=== PATIENT | female | born 1990 | race Caucasian/White ===

== ENCOUNTER 2017-03-03 11:11 | Emergency (ER) | payer OTHER ==
[2017-03-03 11:52] VITALS: BP 141/73; PULSE 79; RESP 20; TEMP 99.7
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
--- NOTE | 2017-03-03 13:02 | XR ---
EXAMINATION TYPE: XR forearm LT , 2 VIEWS DATE OF EXAM ORDERED: 03/03/2017 HISTORY: Pain. COMPARISON: None. FINDINGS: No fracture, dislocation or other acute osseous lesion is seen. IMPRESSION: NORMAL LEFT RADIUS AND ULNA.
== END 2017-03-03 13:36 | disposition home or self-care (01) ==
LOC: EC 11:11
DX: S50.12XA Contusion of left forearm, initial encounter (principal); V49.9XXA Car occupant (driver) (passenger) injured in unspecified traffic accident, initial encounter; Y92.410 Unspecified street and highway as the place of occurrence of the external cause
CPT/HCPCS: 99283

== ENCOUNTER → 2019-09-12 | Outpatient (CLI) | payer OTHER ==
--- NOTE | 2019-09-12 11:48 | US ---
EXAMINATION TYPE: Ultrasound OB <= 14 week fetus DATE OF EXAM: 09/12/2019 10:13 AM COMPARISON: NONE CLINICAL HISTORY: 28-year-old female Z36 Confirm dates. EXAM PERFORMED: Transabdominal (TA) FINDINGS: EXAM MEASUREMENTS: GESTATIONAL AGE / DATING Physician Established: Not yet established Dates by LMP (06/26/2019): (11 weeks/1 days) EDC: 04/01/2020 Dates by First Scan: No previous this is first scan Dates by Current Scan for: (11 weeks/2 days) EDC: 03/31/2020 MATERNAL ANATOMY Uterus: 14.8 x 6.6 x 7.5cm Right Ovary: 2.0 x 1.5 x 1.6cm Left Ovary: 1.8 x 1.3 x 1.6cm Post CDS / Adnexa: wnl GESTATION / SURVEY CRL: 4.4 (11 weeks/2 days) Yolk Sac (normal less than 6mm): not seen Heart Rate: 178 bpm Rhythm: Normal IUP: Viable IUP Date of LMP: 06/26/19 Beta HcG (if available): Not available at this time IMPRESSION: 1. Single live intrauterine with estimated gestational age of 11 weeks 1 day by LMP. Curren t ultrasound biometry is concordant (11 weeks 2 days). 2. Borderline tachycardia at 178 BPM. Follow-up as clinically indicated. Otherwise, complete f etal survey recommended at 18-20 weeks.
== END | disposition home or self-care (01) ==
LOC: RADUSWWP 09:59
PROVIDERS: ATTEND Obstetrics & Gynecology
DX: Z36.89 Encounter for other specified antenatal screening (principal); Z3A.11 11 weeks gestation of pregnancy
CPT/HCPCS: 76801

== ENCOUNTER 2019-12-26 15:27 | Outpatient (CLI) | payer OTHER ==
[2019-12-26 16:07] VITALS: BP 111/69; PULSE 106; RESP 18; TEMP 96
--- NOTE | 2020-01-05 08:00 | P.MSEPDOC ---
Presenting Problems - Arrival Data Date of Arrival on Unit: 12/26/19 Time of Arrival on Unit: 15:40 Mode of Transport: Wheelchair - Complaint OB-Reason for Admission/Chief Complaint: Decreased Movement, Other Comment: numbness and tingling on rt side after walk. no weakness. better now. Medical History - Information : 2 Para: 1 Term: 0 : 1 Abortions: Spontaneous or Elective: 0 Number of Living Children: 1 - Gestational Age Gestational Age by MAINE (wks/days): 26 Weeks and 1 Days Review of Systems - Review of Systems Constitutional: No problems Breast: No problems ENT: No problems Cardiovascular: No problems Respiratory: No problems Gastrointestinal: No problems Genitourinary: No problems Musculoskeletal: Muscle weakness Neurological: No problems Skin: No problems Vital Signs - Temperature Temperature: 96.0 F Temperature Source: Oral - Pulse Right Radial Pulse Rate: 106 Pulse Assessment Method: Automatic Cuff - Respirations Respiratory Rate: 18 Oxygen Delivery Method: Room Air O2 Sat by Pulse Oximetry: 97 - Blood Pressure Right Arm Blood Pressure: 111/69 Blood Pressure Mean: 83 Blood Pressure Source: Automatic Cuff Medical Screen Scoring (Pre) - Cervical Exam Dilation: Exam Deferred Effacement: Exam Deferred - Uterine Contractions Frequency: N/A Duration: N/A Intensity: N/A - Maternal Vital Signs Maternal Temperature: N/A Maternal Blood Pressure: N/A Signs of Preeclampsia: N/A Maternal Respirations: N/A - Maternal Trauma Maternal Trauma: N/A - Assessment - Baby A Baseline FHR: 145 Heart Rate - NICHD Category: Category I (Normal) = 0 Position: N/A Station: N/A - Total Score - Baby A Total Score - Baby A: 0 - Total Score - Baby B Total Score - Baby B: 0 - Total Score - Baby C Total Score - Baby C: 0 - Level of Risk - Baby A Level of Risk - Baby A: Low (0-5) - Level of Risk - Baby B Level of Risk - Baby B: Low (0-5) - Level of Risk - Baby C Level of Risk - Baby C: Low (0-5) Physician Notification (Pre) - Physician Notified Physician Notified Date: 12/26/19 Physician Notified Time: 16:15 New Order Received: Yes Disposition - Disposition OB Disposition: Triage, Discharge to home, Written follow up instructions reviewed Discharge Date: 12/26/19 Discharge Time: 16:20 I agree with the RN Medical Screening Exam: Yes Risk & Benefit of care provided described in d/c instruction: Yes Diagnosis: WEAKNESS
== END 2019-12-26 16:20 | disposition home or self-care (01) ==
LOC: FBPOP 15:27
PROVIDERS: ATTEND Obstetrics & Gynecology
DX: O99.89 Other specified diseases and conditions complicating pregnancy, childbirth and the puerperium (principal); R53.1 Weakness; Z3A.26 26 weeks gestation of pregnancy
CPT/HCPCS: 99213

== ENCOUNTER 2020-01-02 13:36 | Emergency (ER) | payer OTHER ==
[2020-01-02 13:47] VITALS: BP 117/72; PULSE 130; RESP 20; TEMP 98.4
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
--- NOTE | 2020-01-02 14:32 | XR ---
EXAMINATION TYPE: XR wrist complete LT DATE OF EXAM: 01/02/2020 COMPARISON: NONE HISTORY: 29-year-old female fall, medial wrist swelling TECHNIQUE: 3 views FINDINGS: There is soft tissue swelling at the wrist. On the oblique view, there is a subtle transverse lucency at the level of the distal radial metaphysis. On the lateral view, there is some bony irregularity a long the dorsal distal radial metaphysis in the region of Nandini's tubercle. IMPRESSION: Some soft tissue swelling and slight bony irregularity. Suspect a subtle nondisplaced transverse dist al radial metaphyseal fracture.
== END 2020-01-02 15:03 | disposition home or self-care (01) ==
LOC: EC 13:36
DX: O9A.212 Injury, poisoning and certain other consequences of external causes complicating pregnancy, second trimester (principal); S52.502A Unspecified fracture of the lower end of left radius, initial encounter for closed fracture; Z79.82 Long term (current) use of aspirin; Z3A.27 27 weeks gestation of pregnancy; W18.30XA Fall on same level, unspecified, initial encounter; Y92.89 Other specified places as the place of occurrence of the external cause
CPT/HCPCS: 29125; 99284

== ENCOUNTER 2020-01-02 15:20 | Outpatient (CLI) | payer OTHER ==
[2020-01-02 16:01] VITALS: BP 112/76; PULSE 97; RESP 16; TEMP 96.4
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
== END 2020-01-02 15:58 | disposition home or self-care (01) ==
LOC: FBPOP 15:20
PROVIDERS: ATTEND Obstetrics & Gynecology
DX: O9A.212 Injury, poisoning and certain other consequences of external causes complicating pregnancy, second trimester (principal); Z3A.27 27 weeks gestation of pregnancy
CPT/HCPCS: 99213

== ENCOUNTER 2020-01-05 13:06 | Emergency (ER) | payer OTHER ==
[2020-01-05 13:22] VITALS: TEMP 98.4
--- NOTE | 2020-01-05 13:53 | XR ---
EXAMINATION TYPE: XR ankle complete RT DATE OF EXAM: 01/05/2020 CLINICAL HISTORY: Pain since falling injury 3 days ago. TECHNIQUE: Frontal, lateral and oblique images of the right ankle are obtained. COMPARISON: None. FINDINGS: There is no acute fracture/dislocation evident in the right ankle. The ankle mortise appe ars within normal limits. Mild soft tissue swelling over the medial and lateral malleoli along with m ild to moderate focal soft tissue swelling anteriorly is present. IMPRESSION: There is no acute fracture or dislocation in the right ankle.
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
[2020-01-05 14:16] VITALS: BP 122/74; PULSE 107; RESP 16
== END 2020-01-05 14:17 | disposition home or self-care (01) ==
LOC: EC 13:06
DX: O9A.212 Injury, poisoning and certain other consequences of external causes complicating pregnancy, second trimester (principal); S90.01XA Contusion of right ankle, initial encounter; Z3A.27 27 weeks gestation of pregnancy; Z79.82 Long term (current) use of aspirin; W19.XXXA Unspecified fall, initial encounter
CPT/HCPCS: 99283

== ENCOUNTER 2020-02-14 12:50 | Outpatient (CLI) | payer OTHER ==
[2020-02-14 13:11] VITALS: BP 117/74; PULSE 120; RESP 18; TEMP 98.5
--- NOTE | 2020-02-15 07:22 | P.MSEPDOC ---
Presenting Problems - Arrival Data Date of Arrival on Unit: 02/14/20 Time of Arrival on Unit: 12:47 Mode of Transport: Ambulatory - Complaint OB-Reason for Admission/Chief Complaint: Other Comment: ankle swelling x 2 days Medical History - Information : 2 Para: 1 Term: 0 : 1 Abortions: Spontaneous or Elective: 0 Number of Living Children: 1 - Gestational Age Gestational Age by MAINE (wks/days): 33 Weeks and 2 Days - History Complications: Prior Comment: HX PIH first , currently on ASA, doing BP checks at home Review of Systems - Review of Systems Constitutional: No problems Breast: No problems ENT: No problems Cardiovascular: No problems Respiratory: No problems Gastrointestinal: No problems Genitourinary: No problems Musculoskeletal: No problems Neurological: No problems Skin: No problems Vital Signs - Temperature Temperature: 98.5 F Temperature Source: Oral - Pulse Right Sitting Brachial Pulse Rate: 120 Pulse Assessment Method: Auscultation - Respirations Respiratory Rate: 18 Oxygen Delivery Method: Room Air O2 Sat by Pulse Oximetry: 98 - Blood Pressure Right Arm Sitting Blood Pressure: 117/74 Blood Pressure Mean: 88 Blood Pressure Source: Automatic Cuff Medical Screen Scoring (Pre) - Cervical Exam Dilation: Exam Deferred Effacement: Exam Deferred - Uterine Contractions Frequency: N/A Duration: N/A Intensity: N/A - Maternal Vital Signs Maternal Temperature: N/A Maternal Blood Pressure: N/A Signs of Preeclampsia: N/A Maternal Respirations: N/A - Maternal Trauma Maternal Trauma: N/A - Assessment - Baby A Baseline FHR: 135 Heart Rate - NICHD Category: Category I (Normal) = 0 NST: Reactive Position: N/A Station: N/A - Total Score - Baby A Total Score - Baby A: 0 - Total Score - Baby B Total Score - Baby B: 0 - Total Score - Baby C Total Score - Baby C: 0 - Level of Risk - Baby A Level of Risk - Baby A: Low (0-5) - Level of Risk - Baby B Level of Risk - Baby B: Low (0-5) - Level of Risk - Baby C Level of Risk - Baby C: Low (0-5) Physician Notification (Pre) - Physician Notified Physician Notified Date: 02/14/20 Physician Notified Time: 13:05 New Order Received: Yes - Notification Comment Comment: dc home. Follow up with Dr Johnson in the office on Sunday as scheduled. Continue to monitor own BP at home. Return with continued or increased symptoms. Disposition - Disposition OB Disposition: Discharge to home Discharge Date: 02/14/20 Discharge Time: 13:13 I agree with the RN Medical Screening Exam: Yes Risk & Benefit of care provided described in d/c instruction: Yes Diagnosis: GESTATIONAL EDEMA, THIRD TRIMESTER (Patient presented with complaints of lower extremity swelling. She reports history of severe preeclampsia at 35 weeks last . She did tell us that her blood pressures at home however been normal and her blood pressures here excellent. The edema appears to be normal from and not a sign of pathology. No evidence of preeclampsia. Patient will follow up with her physician in several days as scheduled. Return if any concerns, etc.)
== END 2020-02-14 13:13 | disposition home or self-care (01) ==
LOC: FBPOP 12:50
PROVIDERS: ATTEND Obstetrics & Gynecology
DX: O12.03 Gestational edema, third trimester (principal); Z3A.33 33 weeks gestation of pregnancy
CPT/HCPCS: 59025; G0463; 99215

== ENCOUNTER 2020-02-25 21:36 | Outpatient (CLI) | payer OTHER ==
[2020-02-25 22:09] VITALS: BP 129/86; PULSE 110; RESP 18; TEMP 96.6
--- NOTE | 2020-03-08 08:39 | P.MSEPDOC ---
Presenting Problems - Arrival Data Date of Arrival on Unit: 02/25/20 Time of Arrival on Unit: 21:36 Mode of Transport: Ambulatory - Complaint OB-Reason for Admission/Chief Complaint: Decreased Movement Medical History - Information : 2 Para: 1 Term: 0 : 1 Abortions: Spontaneous or Elective: 0 Number of Living Children: 1 - Gestational Age Gestational Age by MAINE (wks/days): 34 Weeks and 6 Days - History Complications: Prior Review of Systems - Review of Systems Constitutional: No problems Breast: No problems ENT: No problems Cardiovascular: No problems Respiratory: No problems Gastrointestinal: No problems Genitourinary: No problems Musculoskeletal: No problems Neurological: No problems Skin: No problems Vital Signs - Temperature Temperature: 96.6 F Temperature Source: Temporal Artery Scan - Pulse Pulse Oximetery Pulse Rate: 110 Pulse Assessment Method: Pulse Oximetry - Respirations Respiratory Rate: 18 Oxygen Delivery Method: Room Air O2 Sat by Pulse Oximetry: 98 - Blood Pressure Right Arm Blood Pressure: 129/86 Blood Pressure Mean: 100 Blood Pressure Source: Automatic Cuff Medical Screen Scoring (Pre) - Cervical Exam Dilation: Exam Deferred Effacement: Exam Deferred Membranes: Intact - Uterine Contractions Frequency: N/A Duration: N/A Intensity: N/A - Maternal Vital Signs Maternal Temperature: N/A Maternal Blood Pressure: N/A Signs of Preeclampsia: N/A Maternal Respirations: N/A - Maternal Trauma Maternal Trauma: N/A - Assessment - Baby A Baseline FHR: 155 Heart Rate - NICHD Category: Category I (Normal) = 0 NST: Reactive Position: N/A Station: N/A - Total Score - Baby A Total Score - Baby A: 0 - Total Score - Baby B Total Score - Baby B: 0 - Total Score - Baby C Total Score - Baby C: 0 - Level of Risk - Baby A Level of Risk - Baby A: Low (0-5) - Level of Risk - Baby B Level of Risk - Baby B: Low (0-5) - Level of Risk - Baby C Level of Risk - Baby C: Low (0-5) Physician Notification (Pre) - Physician Notified Physician Notified Date: 02/25/20 Physician Notified Time: 22:06 New Order Received: Yes - Notification Comment Comment: Dr. Brooke called on cell, report given on maternal and status, pt. complains of no movment for several hours and left sided hand and facial tingling. that lasted 5 mins and has not returned. NST is reactive and pt is feeling good . movement at this time. Vitals are WNL and pt has no other complaints. Orders to. discharge pt home with instructions to monitor movement and keep her appointment with Dr. Johnson tomorrow. Disposition - Disposition OB Disposition: Discharge to home Discharge Date: 02/25/20 Discharge Time: 22:10 I agree with the RN Medical Screening Exam: Yes Risk & Benefit of care provided described in d/c instruction: Yes Diagnosis: DECREASED MOVEMENTS, THIRD TRIMESTER, FETUS 1
== END 2020-02-25 22:10 | disposition home or self-care (01) ==
LOC: FBPOP 21:36
PROVIDERS: ATTEND Obstetrics & Gynecology
DX: O36.8131 Decreased fetal movements, third trimester, fetus 1 (principal); O30.93 Multiple gestation, unspecified, third trimester; Z3A.34 34 weeks gestation of pregnancy
CPT/HCPCS: 59025; G0463; 99213

== ENCOUNTER 2020-03-12 21:35 | Outpatient (CLI) | payer OTHER ==
[2020-03-13 00:14] VITALS: BP 137/83; PULSE 104; RESP 16; TEMP 96.9
--- NOTE | 2020-03-13 07:44 | P.MSEPDOC ---
Presenting Problems - Arrival Data Date of Arrival on Unit: 03/12/20 Time of Arrival on Unit: 21:35 Mode of Transport: Ambulatory - Complaint OB-Reason for Admission/Chief Complaint: Pain, PIH Comment: upper abd pain Medical History - Information : 2 Para: 1 Term: 1 : 0 Abortions: Spontaneous or Elective: 0 Number of Living Children: 1 - Gestational Age Gestational Age by MAINE (wks/days): 37 Weeks and 2 Days - History Complications: Prior , Prior Comment: hx preeclampsia, 35 weeks cs Review of Systems - Review of Systems Constitutional: No problems Breast: No problems ENT: No problems Cardiovascular: No problems Respiratory: No problems Gastrointestinal: No problems Genitourinary: No problems Musculoskeletal: No problems Neurological: No problems Skin: No problems Vital Signs - Temperature Temperature: 96.9 F Temperature Source: Temporal Artery Scan - Pulse Right Pulse Rate: 104 Pulse Assessment Method: Pulse Oximetry - Respirations Respiratory Rate: 16 Oxygen Delivery Method: Room Air - Blood Pressure Right Arm Blood Pressure: 137/83 Blood Pressure Mean: 101 Blood Pressure Source: Automatic Cuff Medical Screen Scoring (Pre) - Cervical Exam Dilation: 0 cm = 0 Membranes: Intact - Uterine Contractions Frequency: N/A Duration: N/A Intensity: N/A - Maternal Vital Signs Maternal Temperature: N/A Maternal Blood Pressure: N/A Signs of Preeclampsia: N/A Maternal Respirations: N/A - Maternal Trauma Maternal Trauma: N/A - Assessment - Baby A Baseline FHR: 135 Heart Rate - NICHD Category: Category I (Normal) = 0 NST: Reactive - Total Score - Baby A Total Score - Baby A: 0 - Total Score - Baby B Total Score - Baby B: 0 - Total Score - Baby C Total Score - Baby C: 0 - Level of Risk - Baby A Level of Risk - Baby A: Low (0-5) - Level of Risk - Baby B Level of Risk - Baby B: Low (0-5) - Level of Risk - Baby C Level of Risk - Baby C: Low (0-5) Physician Notification (Pre) - Physician Notified Physician Notified Date: 03/12/20 Physician Notified Time: 22:20 - Notification Comment Comment: Dr Goodman returned call. reported on pt's c/o sharp upper abd pain, concerns. of PIH. reported on vitals, assessment, no PIH s/sx outside of puffy legs and feet, but. non pitting, SVE closed, no cntrx, reactive fhts, no bleeding or leaking, abd soft and. non tender. dr states per her , the leg puffiness is not new. orders to d/c home. with instructions. return with new or worsening needs Disposition - Disposition OB Disposition: Discharge to home Discharge Date: 03/12/20 Discharge Time: 22:40 I agree with the RN Medical Screening Exam: Yes Risk & Benefit of care provided described in d/c instruction: Yes Diagnosis: FALSE LABOR AT OR AFTER 37 COMPLETED WEEKS OF GESTATION (This patient is a 29-year-old 2 para 1 female 37 weeks gestation who presented to labor and delivery with concerns for possible contractions. Patient had called me earlier in the evening and thought she might be having contractions but was not sure. Patient's past obstetrical history is complicated by preeclampsia which she is being followed for by Dr. Johnson. Blood pressure in the office 2 days ago was normal and blood pressures here serially remain normal. She had 1 blood pressure with a diastolic of 90 however this was not reproducible or persistent. Patient does have some swelling of her lower extremities which is been going on for many weeks. Patient has no other symptomatology other than concern for labor. Prolonged monitoring shows reassuring heart tones and no evidence of labor. At this time it is felt the patient is stable for discharge home follow up with Dr. Johnson next Sunday as scheduled. She was given strict instructions to return if she had any concerns about her blood pressure, signs or symptoms of preeclampsia, and/or signs or symptoms of labor. At this time there is no evidence of maternal/ compromise.)
== END 2020-03-12 22:40 | disposition home or self-care (01) ==
LOC: FBPOP 21:35
PROVIDERS: ATTEND Obstetrics & Gynecology
DX: O47.1 False labor at or after 37 completed weeks of gestation (principal); Z3A.37 37 weeks gestation of pregnancy
CPT/HCPCS: 59025; G0463; 99213

== ENCOUNTER 2020-03-25 06:09 | Inpatient (IN) | payer OTHER ==
[2020-03-24 12:33] VITALS: BMI 41.1
--- NOTE | 2020-03-24 17:56 | P.HPOB ---
History of Present Illness H&P Date: 03/24/20 Chief Complaint: Scheduled repeat section with tubal ligation This is a 29 y.o. female, 2, para 1, with an estimated date of confinement of 04/01/2020, estimated gestational age of 39 weeks, who presents for scheduled repeat section with bilateral partial salpingectomy. She has good movement. She does have swelling in her lower extremities, but no regular headaches. She has a history of preeclampsia with congestive heart failure. She has been doing twice weekly NSTs and has followed with maternal medicine. labs: Hepatitis B surface antigen-neg RPR-NR Rubella-immune Blood type-O+ Antibody screen-neg HIV-NR Hemoglobin-12.7 Toxoplasma-neg Random glucose-66 1 hr. GTT-108 Group B streptococcus-neg OB Hx: . History of primary section for severe preeclampsia at 35 weeks. Hx CHF. [facility] Nurse Hx: Hx genital warts in past. Social Hx: Single/engaged. Review of Systems Constitutional: Denies chills, Denies fever Eyes: denies blurred vision, denies pain Ears, nose, mouth and throat: Denies headache, Denies sore throat Cardiovascular: Denies chest pain, Denies shortness of breath Respiratory: Denies cough Gastrointestinal: Reports abdominal pain (irreg. ctxs) Genitourinary: Reports pelvic pain, Reports Musculoskeletal: Reports low back pain Musculoskeletal: bilateral: ankle swelling Integumentary: Denies pruritus, Denies rash Neurological: Denies numbness, Denies weakness Psychiatric: Denies anxiety, Denies depression Past Medical History Additional Past Medical History / Comment(s): migraines. PRE ECLAMPSIA 2016-LED TO CHF-NO PROBLEMS AT THIS TIME History of Any Multi-Drug Resistant Organisms: None Reported Past Surgical History: Section Additional Past Surgical History / Comment(s): myringotomy as baby Past Anesthesia/Blood Transfusion Reactions: Motion Sickness Past Psychological History: No Psychological Hx Reported Smoking Status: Never smoker Past Alcohol Use History: None Reported Past Drug Use History: None Reported - Past Family History Father Family Medical History: No Reported History Medications and Allergies Home Medications Medication Instructions Recorded Confirmed Type Aspirin [Adult Low Dose Aspirin EC] 81 mg PO DAILY 12/26/19 03/25/20 History Pnv,Calcium 72/Iron/Folic Acid 1 each PO DAILY 12/26/19 03/25/20 History [ Plus Tablet] Allergies Allergy/AdvReac Type Severity Reaction Status Date / Time No Known Allergies Allergy Verified 03/25/20 06:25 Exam Osteopathic Statement: *. No significant issues noted on an osteopathic structural exam other than those noted in the History and Physical/Consult. Intake and Output 03/24/20 03/24/20 03/24/20 06:59 14:59 22:59 Other: Weight 102.058 kg HEENT: within normal limits Heart: regular rate and rhythm Lungs: clear to auscultation bilaterally Abdomen: heart tones: 140's by doppler Cervix: closed/50%/floating Extremities: 2+ pitting edema, neg. Alfie's Results Result Diagrams: 03/25/20 06:30 Assessment and Plan (1) 39 weeks gestation of Current Visit: No Status: Acute Code(s): Z3A.39 - 39 WEEKS GESTATION OF SNOMED Code(s): 51496146 (2) Previous delivery affecting Current Visit: No Status: Acute Code(s): O34.219 - MATERNAL CARE FOR UNSP T YPE SCAR FROM PREVIOUS DEL SNOMED Code(s): 290570458 (3) Family planning Current Visit: No Status: Acute Code(s): Z30.09 - ENCOUNTER FOR OTH GENERAL CNSL AND ADVICE ON CONTRACEPTION SNOMED Code(s): 064646730 Plan: Proceed with repeat section with bilateral tubal ligation. I have discussed the risks, benefits, and alternative therapies for the above- mentioned procedure and for both sedation/anesthesia as well as necessary blood products administration, if indicated, as they pertain to this patient. The patient has indicated her understanding and acceptance of the risks and procedures discussed.
[2020-03-25] MEDS ORDERED: CITRIC ACID-SODIUM CITRATE 15 ML CUP PO ONE (06:24)
[2020-03-25] MEDS ORDERED: LIDOCAINE 1% (10MG/ML) FOR IV START INTRADERMA PRN (06:24)
[2020-03-25] MEDS ORDERED: LACTATED RINGERS 1,000 ML IV ONE (06:24)
[2020-03-25] MEDS: LACTATED RINGERS 1,000 ML IV SCH ×4 (06:39→21:12)
[2020-03-25 06:42] LABS: Basophils % (A) 0 %; Eosinophils % (A) 0 %; HCT 39.7 % (34.0-46.0); Lymphocytes % (A) 20 %; MCHC 32.7 g/dL (31.0-37.0); MCV 94.9 fL (80.0-100.0); Mean Platelet Volume 9.5; Monocytes # (A) 0.6 k/uL (0-1.0); Monocytes % (A) 5 %; Neutrophils # (A) 7.5 k/uL (1.3-7.7); Neutrophils % (A) 73 %; Platelet Count 145 k/uL (150-450); RBC 4.18 m/uL (3.80-5.40); RDW 14.4 % (11.5-15.5); WBC 10.3 k/uL (3.8-10.6)
[2020-03-25] MEDS ORDERED: NALBUPHINE 10 MG/ML (1 ML AMP) ONE (08:00)
[2020-03-25] MEDS ORDERED: OXYTOCIN 10 UNIT/ML 1 ML VIAL ONE (08:00)
[2020-03-25] MEDS ORDERED: ONDANSETRON 4 MG/2 ML VIAL ONE (08:00)
[2020-03-25] MEDS ORDERED: MORPHINE SULFATE (PF) 0.3 MG/0.3 ML SYR ONE (08:00)
[2020-03-25] MEDS ORDERED: KETOROLAC 15 MG/ML 1 ML VIAL ONE (08:00)
--- NOTE | 2020-03-25 08:44 | P.OP ---
Date of Procedure: 03/25/20 Preoperative Diagnosis: 1. Intrauterine at 39-0/7 weeks. 2. History of previous section. 3. Family-planning. Postoperative Diagnosis: Same Procedure(s) Performed: Repeat low transverse section with bilateral partial salpingectomy Anesthesia: spinal (Duramorph) Surgeon: Elisha Johnson Cardiac Surgeon #1: Jonnie Goodman Estimated Blood Loss (ml): 500 Pathology: other (Placenta, portions of right and left fallopian tubes) Condition: stable Disposition: floor Indications for Procedure: This is a 29-year-old female 2 para 1 at 39-0/7 weeks who presents for repeat section with bilateral partial esophagectomy for family planning. I have discussed the risks, benefits, and alternative therapies for the above- mentioned procedure and for both sedation/anesthesia as well as necessary blood products administration, if indicated, as they pertain to this patient. The patient has indicated her understanding and acceptance of the risks and procedures discussed. Operative Findings: A viable female infant is noted in the vertex presentation with scores of 9 at 1 minute and 9 at 5 minutes and weight of 7 lbs. 7 oz. Nuchal cord times one was noted. Normal uterus tubes and ovaries are noted. Description of Procedure: The patient is taken to the operating room where she is placed in the dorsal supine position with leftward tilt after spinal Duramorph anesthesia is given. She is prepped and draped in the normal sterile fashion. Skin was tested and found to be adequately anesthetized. A Pfannenstiel skin incision was made with a scalpel removing the previous laparotomy scar. A second knife was used to carry the incision down to the underlying layer of fascia. The fascia was nicked in the midline with a scalpel and then extended laterally bilaterally with Snyder scissors. The anterior lip of the fascia was grasped with 2 Lakeisha clamps and then dissected off the underlying rectus muscle in the midline with Snyder scissors. The inferior aspect of the fascial incision was grasped with 2 Lakeisha clamps and dissected off the underlying rectus muscle and the midline with Snyder scissors. Next the peritoneum layer was tented up with 2 hemostats and then entered sharply with the scalpel. The incision is extended superiorly and inferiorly with Metzenbaum scissors. Next a DeLee retractor is placed. The vesicouterine peritoneum is entered sharply with Metzenbaum scissors and extended laterally bilaterally with Metzenbaum scissors and then the bladder flap is pushed inferiorly. The lower uterine segment is incised in transverse fashion with the scalpel and then bluntly entered with a hemostat. Clear fluid is noted. The incision was then extended laterally bilaterally with 2 fingers. Next the 's head is delivered through the incision. Nose and mouth are bulb suctioned. Nuchal cord 1 was reduced around the 's head. The remainder of the is easily delivered and placed on mother's abdomen. Cord is clamped and cut. is taken to warmer by nursing staff. Cord blood is obtained secondary to O+ blood type. Uterine fundus is gently massaged and placenta is delivered manually. Uterus is exteriorized and cleared of all clots and debris. Uterine incision is closed with 0 Vicryl suture in a running locked fashion. A second layer of 0 Vicryl suture is used in a running fashion for hemostasis. Once adequate hemostasis as assured, the vesicouterine peritoneum is reapproximated with 2-0 Vicryl suture in a running fashion. The right fallopian tube is grasped in the midportion and then the mesosalpinx is entered with Bovie cautery. Next 0 Vicryl suture is tied 2 times around both the proximal and distal portions of the tube. The same procedure is carried out on the left fallopian tube. The ends of the tubes are cauterized with Bovie cautery. Excellent hemostasis is noted. Posterior cul-de-sac is suctioned of all clots and debris. Uterus is returned to the abdomen. Incision is noted to be hemostatic. Both tubal ends are also visualized and appeared hemostatic. Peritoneal layer is closed with 0 Vicryl suture in a running fashion. Muscle layer is reapproximated with 0 Vicryl suture in interrupted fashion. Fascia layer is then closed with 0 PDS suture with 2 sutures meeting in the midline and the knots buried in either side and in the midline. The subcutaneous tissue was then closed with 2-0 Vicryl suture. Skin layer was then closed with yolette. All sponge and needle counts are correct. The patient is taken to recovery room in stable condition.
[2020-03-25] MEDS ORDERED: ZOLPIDEM 5 MG TAB PO PRN (08:48)
[2020-03-25] MEDS ORDERED: ONDANSETRON 4 MG/2 ML VIAL IVP PRN (08:48)
[2020-03-25] MEDS ORDERED: OXYTOCIN 20 UNITS/1000 ML NS 1,000 ML IV SCH (08:48)
[2020-03-25] MEDS ORDERED: diphenhydrAMINE 50 MG/ML 1 ML VIAL IVP PRN ×2 (08:48)
[2020-03-25] MEDS ORDERED: LANOLIN CREAM 5 GM TUBE TOPICAL PRN (08:48)
[2020-03-25] MEDS ORDERED: HYDROcodone/APAP 7.5-325MG 1 EACH TAB PO PRN (08:48)
[2020-03-25] MEDS ORDERED: HYDROcodone/APAP 5-325MG 1 EACH TAB PO PRN (08:48)
[2020-03-25] MEDS ORDERED: KETOROLAC 15 MG/ML 1 ML VIAL IVP PRN (08:48)
[2020-03-25] MEDS ORDERED: SIMETHICONE 80 MG CHEWABLE PO PRN (08:48)
[2020-03-25] MEDS ORDERED: diphenhydrAMINE 50 MG CAP PO PRN (08:48)
[2020-03-25] MEDS ORDERED: ACETAMINOPHEN TAB 325 MG TAB PO PRN (08:48)
[2020-03-25] MEDS ORDERED: NALOXONE 0.4 MG/ML 1 ML VIAL IV PRN (08:48)
[2020-03-25] MEDS ORDERED: diphenhydrAMINE 25 MG CAP PO PRN (08:48)
[2020-03-25] MEDS: METOCLOPRAMIDE 5 MG/ML 2 ML VIAL IVP PRN ×2 (09:46→20:11)
[2020-03-25] MEDS: PRENATAL VIT-IRON-FOLIC ACID 1 EACH CAP PO SCH (13:20)
[2020-03-25] MEDS: SENNOSIDES-DOCUSATE SODIUM 1 EACH TAB PO SCH (20:12)
[2020-03-26] MEDS: LACTATED RINGERS 1,000 ML IV SCH (05:31)
[2020-03-26 06:57] LABS: Basophils % (A) 0 %; Eosinophils # (A) 0.2 k/uL (0-0.7); Eosinophils % (A) 2 %; HCT 35.2 % (34.0-46.0); HGB 11.6 gm/dL (11.4-16.0); Lymphocytes # (A) 1.4 k/uL (1.0-4.8); Lymphocytes % (A) 13 %; MCH 31.2 pg (25.0-35.0); MCHC 32.9 g/dL (31.0-37.0); MCV 94.7 fL (80.0-100.0); Mean Platelet Volume 9.7; Monocytes # (A) 0.6 k/uL (0-1.0); Monocytes % (A) 5 %; Neutrophils # (A) 8.4 k/uL (1.3-7.7); Neutrophils % (A) 78 %; Platelet Count 116 k/uL (150-450); RBC 3.72 m/uL (3.80-5.40); RDW 15.1 % (11.5-15.5); WBC 10.7 k/uL (3.8-10.6)
--- NOTE | 2020-03-26 07:01 | P.PN ---
Progress Note - Text Date: 03/26/2020 Time: 06:41 The patient is status post section Vital signs stable VAS: 0-1-10 Patient has no complaints of pain. The patient incurred some minimal itching yesterday, this itching is now subsiding. Pain meds to be managed by service.
[2020-03-26] MEDS: IBUPROFEN 600 MG TAB PO PRN ×3 (07:43→21:50)
[2020-03-26] MEDS: SENNOSIDES-DOCUSATE SODIUM 1 EACH TAB PO SCH ×2 (07:43→19:36)
--- NOTE | 2020-03-26 08:25 | P.PNOBGPC ---
Subjective - Subjective Principal diagnosis: Repeat section with tubal ligation postoperative day #1 Interval history: Patient is doing well. She is ambulating. She is passing flatus but no bowel movement yet. She is urinating without difficulty. She is bottle feeding. Lochia is decreasing. Her pain is fairly well controlled so far with ibuprofen. Patient reports: Reports appetite normal, Reports voiding normally, Reports pain well controlled, Reports ambulating normally [place]: doing well, bottle feeding Objective - Vital Signs Latest vital signs: Vital Signs Temp Pulse Resp BP Pulse Ox 03/26/20 04:00 98.6 F 69 16 107/66 100 03/26/20 00:00 98.8 F 100 16 124/77 98 03/25/20 20:00 98.4 F 102 H 18 122/77 95 03/25/20 16:30 98.0 F 90 19 110/70 03/25/20 12:00 97.7 F 112 H 16 130/91 03/25/20 10:45 97.8 F 93 16 106/67 100 03/25/20 10:15 18 03/25/20 09:45 97 16 106/65 98 03/25/20 09:30 86 16 113/63 96 03/25/20 09:15 109 H 16 107/54 98 03/25/20 09:00 96 16 122/53 98 03/25/20 08:45 96.2 F L 104 H 16 128/55 Intake and Output 03/25/20 03/26/20 03/26/20 22:59 06:59 14:59 Intake Total 625 Output Total 1000 1400 Balance -1000 -775 Intake: IV 625 Output: Urine 1000 1400 Straight 700 Uretheral (Nieto) 500 Other: # Emeses 1 - Exam Extremities: Present: edema (Trace) Abdomen: Present: normal appearance, soft. Absent: distention, tenderness Incision: Present: normal, dry, intact. Absent: erythematous Uterus: Present: normal, firm. Absent: tenderness - Labs Labs: Abnormal Lab Results - Last 24 Hours (Table) 03/26/20 Range/Units 06:31 WBC 10.7 H (3.8-10.6) k/uL RBC 3.72 L (3.80-5.40) m/uL Plt Count 116 L (150-450) k/uL Neutrophils # 8.4 H (1.3-7.7) k/uL Assessment and Plan Assessment: Status post repeat section with bilateral partial subjective a postoperative day #1 (1) 39 weeks gestation of Current Visit: No Status: Acute Code(s): Z3A.39 - 39 WEEKS GESTATION OF SNOMED Code(s): 93006920 (2) Previous delivery affecting Current Visit: No Status: Acute Code(s): O34.219 - MATERNAL CARE FOR UNSP TYPE SCAR FROM PREVIOUS DEL SNOMED Code(s): 132966016 (3) Family planning Current Visit: No Status: Acute Code(s): Z30.09 - ENCOUNTER FOR OTH GENERAL CNSL AND ADVICE ON CONTRACEPTION SNOMED Code(s): 423818418 Plan: Continue with postoperative care today. Will switch to oral pain medications today. Patient is encouraged to ambulate. I have discussed opioid use with her. She has signed a start talking opioid form. I have advised her I will send in some [place] to her pharmacy just in case she needs it when she gets home.
[2020-03-26] MEDS: PRENATAL VIT-IRON-FOLIC ACID 1 EACH CAP PO SCH (14:56)
[2020-03-27] MEDS: IBUPROFEN 600 MG TAB PO PRN ×3 (03:37→19:50)
--- NOTE | 2020-03-27 06:59 | P.PNOBGPC ---
Subjective - Subjective Patient reports: Reports appetite normal, Reports voiding normally, Reports pain well controlled, Reports ambulating normally : doing well Objective - Vital Signs Latest vital signs: Vital Signs Temp Pulse Resp BP Pulse Ox 03/27/20 00:00 97.8 F 79 18 126/81 97 03/26/20 16:00 98.4 F 81 16 115/69 98 03/26/20 08:00 98.4 F 99 16 123/81 98 Intake and Output 03/26/20 03/26/20 03/27/20 14:59 22:59 06:59 Output Total 500 Balance -500 Output: Urine 500 Other: # Voids 1 2 2 - Exam Lungs: bilateral: normal Chest: Normal S1, Normal S2 Extremities: Present: normal Abdomen: Present: normal appearance, soft. Absent: distention, tenderness Incision: Present: normal, dry, intact Uterus: Present: normal, firm - Labs Labs: Abnormal Lab Results - Last 24 Hours (Table) 03/26/20 Range/Units 06:31 WBC 10.7 H (3.8-10.6) k/uL RBC 3.72 L (3.80-5.40) m/uL Plt Count 116 L (150-450) k/uL Neutrophils # 8.4 H (1.3-7.7) k/uL Assessment and Plan Assessment: Postoperative day #2. Patient is resting without new complaints. The pressures are normal. Lungs are clear. She's having minimal lower extremity edema. Incision is intact and dry. Pressure this is a normal post operative course. Plan is to Encourage ambulation continue routine postoperative care. Due to patient's history will continue to monitor until tomorrow. (1) delivery delivered Current Visit: No Status: Acute Code(s): O82 - ENCOUNTER FOR DELIVERY WITHOUT INDICATION SNOMED Code(s): 145388298
[2020-03-27] MEDS: SENNOSIDES-DOCUSATE SODIUM 1 EACH TAB PO SCH ×2 (07:56→20:20)
[2020-03-27] MEDS: PRENATAL VIT-IRON-FOLIC ACID 1 EACH CAP PO SCH (12:40)
[2020-03-27 23:09] VITALS: PULSE 73
[2020-03-28] MEDS: IBUPROFEN 600 MG TAB PO PRN (02:09)
--- NOTE | 2020-03-28 07:15 | P.PNOBGPC ---
Subjective - Subjective Patient reports: Reports appetite normal, Reports voiding normally, Reports pain well controlled, Reports ambulating normally : doing well Objective - Vital Signs Latest vital signs: Vital Signs Temp Pulse Resp BP Pulse Ox 03/27/20 23:07 98.3 F 73 18 123/87 98 03/27/20 16:00 97.3 F L 80 16 133/74 98 03/27/20 08:00 98.7 F 80 18 125/78 99 Intake and Output 03/27/20 03/28/20 03/28/20 22:59 06:59 14:59 Other: # Voids 2 2 - Exam Lungs: bilateral: normal Chest: Normal S1, Normal S2 Extremities: Present: normal Abdomen: Present: normal appearance, soft. Absent: distention, tenderness Incision: Present: normal, dry, intact Uterus: Present: normal, firm Assessment and Plan Assessment: Postoperative day #3. She is resting without complaints wishes to go home. Vital signs are stable she is afebrile. Uterus is firm nontender and her incision is intact and dry. My impression this is a normal /postope rative course. Plan is to continue routine care and discharge home later today (1) delivery delivered Current Visit: No Status: Acute Code(s): O82 - ENCOUNTER FOR DELIVERY WITHOUT INDICATION SNOMED Code(s): 885640922
--- NOTE | 2020-03-28 07:20 | P.DS ---
Providers Date of admission: 03/25/20 06:09 Expected date of discharge: 03/28/20 Attending physician: Elisha Johnson Primary care physician: Stated None - Discharge Diagnosis(es) (1) delivery delivered Current Visit: No Status: Acute Hospital Course: Please see dictated H&P for intimate details of this patient's admission. Brief summary is a 29-year-old 2 para 1 female 39 weeks gestation admitted to labor and delivery for elective repeat section and also requesting permanent sterilization. Patient undergoes above-named surgeries. On postoperative 3 patient's feeling well felt be stable for discharge home follow up with Dr. Johnson in 1 week. Procedures: Repeat low transverse section and bilateral partial salpingectomy Patient Condition at Discharge: Good Plan - Discharge Summary Discharge Rx Participant: Yes New Discharge Prescriptions: New Ibuprofen [Motrin] 600 mg PO Q6HR PRN #60 tab PRN Reason: Mild Pain Or Fever >= 100.5 HYDROcodone/APAP 5-325MG [Omar 5-325] 1 each PO Q4HR PRN #28 tab PRN Reason: Moderate Pain Continue Pnv,Calcium 72/Iron/Folic Acid [ Plus Tablet] 1 each PO DAILY Discontinued Aspirin [Adult Low Dose Aspirin EC] 81 mg PO DAILY Discharge Medication List Pnv,Calcium 72/Iron/Folic Acid [ Plus Tablet] 1 each PO DAILY 12/26/19 [History] HYDROcodone/APAP 5-325MG [Omar 5-325] 1 each PO Q4HR PRN #28 tab 03/26/20 [Rx] Ibuprofen [Motrin] 600 mg PO Q6HR PRN #60 tab 03/26/20 [Rx] Follow up Appointment(s)/Referral(s): Elisha Johnson DO [Doctor of Osteopathic Medicine] - 04/05/20 9:00 am (Patient also has a appointment on May 04 at 11:30 AM) Activity/Diet/Wound Care/Special Instructions: Instructions 1. Do not begin any exercise program for 3 weeks. 2. Do not resume sexual relations for 3 weeks or longer if uncomfortable. 3. You may take tub baths or showers at any time. 4. You may use tampons if desired after 3 weeks. 5. Keep the area of episiotomy (stitches) clean and dry. 6. If you are not nursing, wear a good fitting, supportive bra during the day and limit fluid intake for at least 1 week to prevent breast engorgement. 7. Call the office, [phone], within the next week to make appointment for your 6 week checkup if it has not already been made. 8. Report any of the following occurrences to the doctor promptly: a. Heavy, excessive bleeding b. Chills, fever c. Burning or frequency of urination d. Pain or redness and breasts if nursing e. Increasing pain or swelling in episiotomy (stitches). In addition to the above instructions, the following additional should be followed: 1. No heavy lifting or straining (exercising) until after 6 week checkup. 2. Keep abdominal incision clean and dry: You may wear a dressing if more comfortable. 3. Make office appointment for 10 days after going home or as instructed by her doctor. Discharge Disposition: HOME SELF-CARE
[2020-03-28] MEDS: PRENATAL VIT-IRON-FOLIC ACID 1 EACH CAP PO SCH (07:39)
[2020-03-28] MEDS: SENNOSIDES-DOCUSATE SODIUM 1 EACH TAB PO SCH (07:39)
[2020-03-28 07:58] VITALS: BP 114/72; RESP 16; TEMP 98.4
== END 2020-03-28 09:38 | disposition home or self-care (01) | DRG 785 ==
LOC: 4FBP 06:09
PROVIDERS: ADMIT Obstetrics & Gynecology; ATTEND Obstetrics & Gynecology
PROC: 10D00Z1 Extraction of Products of Conception, Low, Open Approach (ICD-10-PCS; principal; 2020-03-25 08:00)
PROC: 0UB70ZZ Excision of Bilateral Fallopian Tubes, Open Approach (ICD-10-PCS; principal; 2020-03-25 08:00)
DX: O34.211 Maternal care for low transverse scar from previous cesarean delivery (principal); O69.81X0 Labor and delivery complicated by cord around neck, without compression, not applicable or unspecified; Z86.79 Personal history of other diseases of the circulatory system; Z37.0 Single live birth; Z3A.39 39 weeks gestation of pregnancy; Z79.82 Long term (current) use of aspirin; Z86.19 Personal history of other infectious and parasitic diseases; Z98.890 Other specified postprocedural states; Z30.2 Encounter for sterilization
CPT/HCPCS: 85025; 86850; 86900; 86901

== ENCOUNTER 2020-03-29 19:00 | Observation (INO) | payer OTHER ==
[2020-03-29 19:37] LABS: Creatinine,Urine Random 208.2 mg/dL; Creatinine,Urine Random 209.7 mg/dL; Protein/Creatinine Ratio,Urine 0.048
[2020-03-29 19:56] LABS: Appearance,Urine Clear (Clear); Bilirubin,Urine Negative (Negative); Blood,Urine Trace (Negative); Color,Urine Yellow; Glucose,Urine (UA) Negative (Negative); Ketones,Urine Negative (Negative); Leukocyte Esterase,Urine Negative (Negative); Mucus,Urine Many /hpf; Nitrite,Urine Negative (Negative); PH, Urine 5.5 (5.0-8.0); Protein,Urine Trace (Negative); RBC,Urine <1 /hpf (0-5); Specific Gravity,Urine 1.029 (1.001-1.035); Squamous Epithelial Cell,Urine <1 /hpf (0-4); Urobilinogen,Urine <2.0 mg/dL (<2.0); WBC,Urine 5 /hpf (0-5)
[2020-03-29 20:25] LABS: Basophils % (A) 0 %; Eosinophils % (A) 1 %; HCT 34.1 % (34.0-46.0); HGB 11.3 gm/dL (11.4-16.0); Lymphocytes # (A) 1.7 k/uL (1.0-4.8); Lymphocytes % (A) 18 %; MCH 31.2 pg (25.0-35.0); MCV 94.6 fL (80.0-100.0); Mean Platelet Volume 9.3; Monocytes # (A) 0.6 k/uL (0-1.0); Monocytes % (A) 6 %; Neutrophils # (A) 6.9 k/uL (1.3-7.7); Neutrophils % (A) 74 %; Platelet Count 153 k/uL (150-450); RBC 3.61 m/uL (3.80-5.40); RDW 14.1 % (11.5-15.5); WBC 9.3 k/uL (3.8-10.6)
[2020-03-29 20:34] LABS: ALT 31 U/L (4-34); AST 82 U/L (14-36); African American GFR (CKD) >90 (>60 ml/min/1.73 sqM); Blood Urea Nitrogen 16 mg/dL (7-17); LDH 737 U/L (313-618); Non-African American GFR(CKD) >90 (>60 ml/min/1.73 sqM); Uric Acid 5.7 mg/dL (3.7-7.4)
[2020-03-29] MEDS ORDERED: IBUPROFEN 600 MG TAB PO PRN (20:40)
[2020-03-29] MEDS ORDERED: CALCIUM GLUCONATE 1 GM/10 ML VIAL IV PRN (20:57)
[2020-03-29] MEDS ORDERED: MAGNESIUM SULFATE-WATER PMX 4 GM in WATER FOR INJECTION 1 100ML.BAG IVPB ONE (20:57)
[2020-03-29] MEDS ORDERED: LACTATED RINGERS 1,000 ML IV SCH (21:45)
[2020-03-29] MEDS: MAGNESIUM SULFATE-WATER PMX 20 GM in WATER FOR INJECTION 1 500ML.BAG IV SCH (21:56)
[2020-03-30] MEDS ORDERED: LACTATED RINGERS 1,000 ML IV SCH (00:07)
[2020-03-30 06:40] LABS: Basophils % (A) 0 %; Eosinophils # (A) 0.1 k/uL (0-0.7); Eosinophils % (A) 1 %; HCT 36.3 % (34.0-46.0); Lymphocytes # (A) 1.3 k/uL (1.0-4.8); Lymphocytes % (A) 15 %; MCH 31.1 pg (25.0-35.0); MCV 94.3 fL (80.0-100.0); Mean Platelet Volume 8.5; Monocytes # (A) 0.5 k/uL (0-1.0); Monocytes % (A) 6 %; Neutrophils # (A) 6.6 k/uL (1.3-7.7); Neutrophils % (A) 77 %; Platelet Count 162 k/uL (150-450); RBC 3.85 m/uL (3.80-5.40); RDW 14.2 % (11.5-15.5); WBC 8.6 k/uL (3.8-10.6)
[2020-03-30 06:48] LABS: African American GFR (CKD) >90 (>60 ml/min/1.73 sqM); Anion Gap 7 mmol/L; Blood Urea Nitrogen 14 mg/dL (7-17); Calcium 7.7 mg/dL (8.4-10.2); Carbon Dioxide 25 mmol/L (22-30); Chloride 107 mmol/L (98-107); Glucose 94 mg/dL (74-99); Non-African American GFR(CKD) >90 (>60 ml/min/1.73 sqM); Potassium 3.8 mmol/L (3.5-5.1); Sodium 139 mmol/L (137-145)
[2020-03-30 07:31] LABS: ALT 33 U/L (4-34); AST 76 U/L (14-36); LDH 758 U/L (313-618)
[2020-03-30] MEDS: MAGNESIUM SULFATE-WATER PMX 20 GM in WATER FOR INJECTION 1 500ML.BAG IV SCH ×2 (07:41→17:28)
[2020-03-30] MEDS: ACETAMINOPHEN TAB 500 MG TAB PO PRN ×2 (08:14→18:14)
--- NOTE | 2020-03-30 08:14 | P.HPOB ---
History of Present Illness H&P Date: 03/30/20 Chief Complaint: Elevated blood pressures This is a 29-year-old female 2 para 2 who delivered via section with bilateral partial salpingectomy on 03/25/2020. She was discharged home on 03/28/2020. She was doing fine once she was discharged but then called me yesterday evening complaining of an elevated blood pressure. She had a blood pressure of approximately 160/105. Also her pulse rate was low at 52. She repeated it after an hour and got similar results. She therefore came into triage for evaluation. She denies any regular headaches. Her pain has been fairly well-controlled with ibuprofen. She denies any epigastric pain, nausea, vomiting, diarrhea. She does complain of swelling in her lower extremities. She denies any chest pain or shortness of breath however she does state she has a weird feeling in her chest that she cannot describe. Review of Systems Constitutional: Denies chills, Denies chronic headaches, Denies fever Eyes: denies blurred vision, denies photophobia Ears, nose, mouth and throat: Denies headache, Denies sore throat Cardiovascular: Denies chest pain, Denies shortness of breath Respiratory: Denies cough Gastrointestinal: Denies abdominal pain, Denies diarrhea, Denies nausea, Denies vomiting Genitourinary: Reports pelvic pain (Mild incisional pain) Musculoskeletal: bilateral: ankle swelling, foot swelling Neurological: Denies numbness, Denies weakness Psychiatric: Denies anxiety, Denies depression Past Medical History Additional Past Medical History / Comment(s): migraines. CHF and preeclampsia after last delivery History of Any Multi-Drug Resistant Organisms: None Reported Past Surgical History: Section (Times 2), Tubal Ligation Additional Past Surgical History / Comment(s): myringotomy as baby Past Anesthesia/Blood Transfusion Reactions: Motion Sickness Past Psychological History: No Psychological Hx Reported Smoking Status: Never smoker Past Alcohol Use History: None Reported Past Drug Use History: None Reported - Past Family History Father Family Medical History: No Reported History Medications and Allergies Home Medications Medication Instructions Recorded Confirmed Type Ibuprofen [Motrin] 600 mg PO Q6HR PRN #60 tab 03/26/20 03/29/20 Rx Allergies Allergy/AdvReac Type Severity Reaction Status Date / Time No Known Allergies Allergy Verified 03/29/20 19:09 Exam Osteopathic Statement: *. No significant issues noted on an osteopathic structural exam other than those noted in the History and Physical/Consult. Vital Signs Temp Pulse Resp BP Pulse Ox 03/30/20 07:00 69 16 146/82 03/30/20 06:00 86 16 126/72 96 03/30/20 05:00 70 16 136/73 95 03/30/20 04:00 95.7 F L 79 16 129/83 97 03/30/20 03:00 64 14 134/81 98 03/30/20 02:00 73 14 135/71 03/30/20 01:00 66 16 137/82 03/29/20 23:55 96.1 F L 77 14 131/67 03/29/20 23:30 59 L 136/76 03/29/20 23:00 56 L 16 134/81 03/29/20 22:30 50 L 16 138/76 98 03/29/20 22:15 43 L 16 128/74 03/29/20 21:56 64 16 135/73 03/29/20 21:47 57 L 16 138/67 03/29/20 21:38 48 L 18 156/83 03/29/20 20:40 43 L 18 136/82 97 Intake and Output 03/29/20 03/30/20 03/30/20 22:59 06:59 14:59 Intake Total 725 562.5 Output Total 1875 400 Balance -1150 162.5 Intake: IV 725 75 Lactated Ringers 1,000 ml 150 25 @ 25 mls/hr IV .Q24H [facility] Rx#:[id number] Lactated Ringers 1,000 ml 75 @ 50 mls/hr IV .Q20H [facility] Rx#:[id number] Magnesium Sulfate-Water 400 50 Pmx 20 gm In Water For Injection 1 500ml.bag @ 2 GM/HR 50 mls/hr IV .Q10H [facility] Rx#:[id number] Magnesium Sulfate-Water 100 Pmx 4 gm In Water For Injection 1 100ml.bag @ 300 mls/hr IVPB ONCE ONE Rx#:[id number] Intake, IV Titration 487.5 Amount Magnesium Sulfate-Water 487.5 Pmx 20 gm In Water For Injection 1 500ml.bag @ 2 GM/HR 50 mls/hr IV .Q10H [facility] Rx#:[id number] Output: Urine 1875 400 Other: Weight 97.069 kg Gen.: Well-developed well-nourished female in no acute distress HEENT: Within normal limits Heart: Regular rate and rhythm Lungs: Clear to auscultation bilaterally Abdomen: Soft, nontender Incision: Clean dry and intact Extremities: 2+ pitting edema Results Result Diagrams: 03/30/20 06:16 03/30/20 06:16 Abnormal Lab Results - Last 24 Hours (Table) 03/29/20 03/29/20 03/29/20 Range/Units 19:15 19:37 19:37 RBC 3.61 L (3.80-5.40) m/uL Hgb 11.3 L (11.4-16.0) gm/dL Calcium (8.4-10.2) mg/dL AST 82 H (14-36) U/L Lactate Dehydrogenase 737 H (313-618) U/L Urine Protein Trace H (Negative) Urine Blood Trace H (Negative) Urine Mucus Many H (None) /hpf 03/30/20 03/30/20 Range/Units 06:00 06:16 RBC (3.80-5.40) m/uL Hgb (11.4-16.0) gm/dL Calcium 7.7 L (8.4-10.2) mg/dL AST 76 H (14-36) U/L Lactate Dehydrogenase 758 H (313-618) U/L Urine Protein (Negative) Urine Blood (Negative) Urine Mucus (None) /hpf Assessment and Plan (1) Bradycardia by electrocardiogram Current Visit: Yes Status: Acute Code(s): R00.1 - BRADYCARDIA, UNSPECIFIED SNOMED Code(s): 878169023 (2) Pre-eclampsia affecting puerperium Current Visit: Yes Status: Acute Code(s): O14.95 - UNSPECIFIED PRE-ECLAMPSIA , COMPLICATING THE PUERPERIUM SNOMED Code(s): 448229028 Plan: Admit for observation and cardiology consultation. Will continue magnesium for 24 hours and then stop. I have advised her that we will keep her overnight tonight until at least tomorrow morning. We will await cardiology consultation and input. All questions answered.
--- NOTE | 2020-03-31 08:13 | P.PN ---
Subjective Progress Note Date: 03/31/20 Principal diagnosis: preeclampsia Patient denies any complaints this morning. She did take Tylenol yesterday for headache. She thinks her swelling has gone down a little bit. She still has not been seen by cardiology yet. Nursing did speak with filler operator on the evening of 03/29/2020 to notify them of the consult. Objective - Vital Signs Vital signs: Vital Signs Temp 97.8 F 03/31/20 04:00 Pulse 63 03/31/20 04:00 Resp 18 03/31/20 04:00 BP 134/86 03/31/20 04:00 Pulse Ox 99 03/30/20 20:00 Intake & Output 03/30/20 03/31/20 03/31/20 18:59 06:59 18:59 Intake Total 1919.667 Output Total 2750 700 Balance -830.333 -700 Intake: IV 825 Lactated Ringers 1,000 ml 275 @ 25 mls/hr IV .Q24H [facility] Rx#:[id number] Magnesium Sulfate-Water 550 Pmx 20 gm In Water For Injection 1 500ml.bag @ 2 GM/HR 50 mls/hr IV .Q10H [facility] Rx#:[id number] Intake, IV Titration 976.667 Amount Magnesium Sulfate-Water 976.667 Pmx 20 gm In Water For Injection 1 500ml.bag @ 2 GM/HR 50 mls/hr IV .Q10H [facility] Rx#:[id number] Oral 118 Output: Urine 2750 700 Uretheral (Nieto) 300 - Constitutional General appearance: Present: no acute distress - Respiratory Respiratory: bilateral: CTA - Cardiovascular Rhythm: regular - Gastrointestinal General gastrointestinal: Present: normal bowel sounds - Musculoskeletal Musculoskeletal Comment(s): 2+ pitting edema in lower extremities bilaterally - Labs CBC & Chem 7: 03/30/20 06:16 03/30/20 06:16 Assessment and Plan (1) Bradycardia by electrocardiogram Current Visit: Yes Status: Acute Code(s): R00.1 - BRADYCARDIA, UNSPECIFIED SNOMED Code(s): 211788210 (2) Pre-eclampsia affecting puerperium Current Visit: Yes Status: Acute Code(s): O14.95 - UNSPECIFIED PRE- ECLAMPSIA, COMPLICATING THE PUERPERIUM SNOMED Code(s): 227537596 Plan: Will await cardiology input. If cleared by cardiology, will discharge today. Blood pressures have improved since magnesium sulfate.
[2020-03-31 08:35] VITALS: RESP 16
--- NOTE | 2020-03-31 10:34 | ECHOF ---
Referral Reason:HX of heart failure MEASUREMENTS -------- HEIGHT: 157.5 cm WEIGHT: 97.1 kg BP: 134/86 RVIDd: 2.5 cm (< 3.3) IVSd: 0.9 cm (0.6 - 1.1) LVIDd: 4.8 cm (3.9 - 5.3) LVPWd: 1.1 cm (0.6 - 1.1) IVSs: 1.3 cm LVIDs: 3.2 cm LVPWs: 1.6 cm LAESV Index (A-L): 27.84 ml/m Ao Diam: 2.9 cm (2.0 - 3.7) AV Cusp: 2.3 cm (1.5 - 2.6) MV EXCURSION: 16.631 mm (> 18.000) MV EF SLOPE: 79 mm/s (70 - 150) EPSS: 0.9 cm MV E Nestor: 0.96 m/s MV DecT: 178 ms MV A Nestor: 1.10 m/s MV E/A Ratio: 0.87 RAP: 5.00 mmHg RVSP: 37.64 mmHg FINDINGS -------- Sinus rhythm. This was a technically difficult study with suboptimal apical views. The left ventricular size is normal. Left ventricular wall thickness is normal. Overall left vent ricular systolic function is normal with, an EF between 55 - 60 %. The right ventricle is normal in size. Normal LA size by volume 22+/-6 ml/m2. The right atrial size is normal. 5.0mg of Lumason was utilized for enhancement of images Interatrial and interventricular septum intact. The aortic valve is trileaflet and appears structurally normal. There is no evidence of aortic regu rgitation. There is no evidence of aortic stenosis. Limh-wq-jeujufjl mitral regurgitation is present. Mild tricuspid regurgitation present. There is mild pulmonary hypertension. The right ventricular systolic pressure, as measured by Doppler, is 37.64mmHg. There is no pulmonic regurgitation present. The aortic root size is normal. IVC Not well visulized. There is no pericardial effusion. CONCLUSIONS -------- 1. The left ventricular size is normal. 2. Left ventricular wall thickness is normal. 3. Overall left ventricular systolic function is normal with, an EF between 55 - 60 %. 4. Izgx-jk-njyrkfoy mitral regurgitation is present. 5. Mild tricuspid regurgitation present. 6. There is mild pulmonary hypertension. 7. The right ventricular systolic pressure, as measured by Doppler, is 37.64mmHg. CARRIER ASSOCIATE: Anne Hartman RDCS
--- NOTE | 2020-03-31 12:26 | P.DS ---
Providers Date of admission: 03/29/20 20:59 Attending physician: Elisha Johnson Consults: 03/30/20 16:24 Consult Physician Urgent Consulting Provider: Pieter Orta Consult Reason/Comments: post bradycardia, history of CHF, preeclampsia Do you want consulting provider notified?: Yes Primary care physician: Stated None - Discharge Diagnosis(es) (1) Bradycardia by electrocardiogram Current Visit: Yes Status: Acute (2) Pre-eclampsia affecting puerperium Current Visit: Yes Status: Acute Hospital Course: This is a 29-year-old female 2 para 2 who is status post section with tubal ligation on 03/25/2020 who presented with elevated blood pressures and bradycardia on the evening of 03/29/2020. She was started on magnesium sulfate seizure prophylaxis due to preeclampsia. Cardiology was consulted due to her history of preeclampsia and CHF with her last . Echocardiogram was performed and was apparently okay. Cardiology does want her to follow-up in the office. Her blood pressures have normalized. She denies any current symptoms. Her swelling has gone down somewhat. Impression is status post repeat section with tubal ligation postoperative day #6, preeclampsia. Plan is to discharge home today. She will follow-up with me next Sunday for a postoperative check. She will continue to check her blood pressures at home at least twice a day. She is advised to call the office if she starts having any significantly elevated blood pressures above 160/100, any new symptoms, or any other concerns. She will follow-up with cardiology also. Procedures: Cardiac echocardiogram Patient Condition at Discharge: Stable Plan - Discharge Summary New Discharge Prescriptions: No Action Ibuprofen [Motrin] 600 mg PO Q6HR PRN #60 tab PRN Reason: Mild Pain Or Fever >= 100.5 Discharge Medication List Ibuprofen [Motrin] 600 mg PO Q6HR PRN #60 tab 03/26/20 [Rx] Follow up Appointment(s)/Referral(s): Elisha Johnson DO [Doctor of Osteopathic Medicine] - 04/05/20 Rudolph Jennings MD [STAFF PHYSICIAN] - 04/20/20 Activity/Diet/Wound Care/Special Instructions: Activity as tolerated. Diet as tolerated. Discharge Disposition: HOME SELF-CARE
--- NOTE | 2020-03-31 12:36 | P.CRDCN ---
History of Present Illness History of present illness: HISTORY OF PRESENTING ILLNESS This is a pleasant 29-year-old female past medical history significant for pre-eclampsia, hypertensive heart failure during her first 5 years ago and non-rheumatic mitral regurgitation. She follows in the office with Dr. Jennings. We have been asked to see in consultation for bradycardia. She is post- s/p section with bilateral partial salpingectomy on 03/25/2020. Since getting home she has noticed increased lower extremity edema and her blood pressure at home was 160/105 with a pulse in the 50s. According to the patient her pulse typically runs between 70 and 80 so this alarmed her. Blood pressures and heart rates since being admitted yesterday are between 120 and 1:30 systolic and heart rate between 60 and 80. She denies symptoms of chest pain, shortness of breath, dizziness or palpitations. Echocardiogram obtained reveals preserved LV systolic function with ejection fraction 50-55% with mild to moderate mitral regurgitation. DIAGNOSTICS EKG reveals it is bradycardia. Laboratory reviewed, CBC unremarkable, sodium 139, potassium 3.8, creatinine 0.66. She takes no daily medications. REVIEW OF SYSTEMS At the time of my exam: CONSTITUTIONAL: Denies fever or chills. CARDIOVASCULAR: Denies chest pain, shortness of breath, orthopnea, PND or palpitations. RESPIRATORY: Denies cough. GASTROINTESTINAL: Denies abdominal pain, diarrhea, constipation, nausea or vomiting. MUSCULOSKELETAL: Denies myalgias. NEUROLOGIC: Denies numbness, tingling or weakness. ENDOCRINE: Denies fatigue, weight change, polydipsia or polyurina. GENITOURINARY: Denies burning, hematuria or urgency with micturation. HEMATOLOGIC: Denies history of anemia or bleeding. PHYSICAL EXAMINATION Blood pressure 140/88 heart rate 67 afebrile and maintaining oxygen saturation on room air. CONSTITUTIONAL: No apparent distress. HEENT: Head is normocephalic. Pupils are equal, round. Sclerae anicteric. Mucous membranes of the mouth are moist. No JVD. No carotid bruit. CHEST EXAMINATION: Lungs are clear to auscultation. No chest wall tenderness is noted on palpation or with deep breathing. HEART EXAMINATION: Regular rate and rhythm. S1, S2 heard. Soft systolic ejection murmur at the apex, no gallops or rub. ABDOMEN: Soft, nontender. Positive bowel sounds. EXTREMITIES: 2+ peripheral pulses, bilateral lower extremity non pitting edema and no calf tenderness. NEUROLOGIC EXAMINATION: Patient is awake, alert and oriented x3. ASSESSMENT Sinus bradycardia, asymptomatic History of pre-eclampsia with first 5 yrs ago Post- section 03/25/2020 Hypertension at home PLAN Stable from a cardiac perspective. Echocardiogram reviewed, normal EF. Blood pressure is stable. Follow up with Dr. Jennings as previously scheduled. Assured the patient that her heart rate in the 50's is normal for someone of her age. Thank you kindly for this consultation. Nurse Practitioner note has been reviewed, I agree with a documented findings and plan of care. Patient was seen and examined. Past Medical History Past Medical History: No Reported History Additional Past Medical History / Comment(s): migraines. CHF and preeclampsia after last delivery History of Any Multi-Drug Resistant Organisms: None Reported Past Surgical History: Section (Times 2), Tubal Ligation Additional Past Surgical History / Comment(s): myringotomy as baby Past Anesthesia/Blood Transfusion Reactions: Motion Sickness Past Psychological History: No Psychological Hx Reported Smoking Status: Never smoker Past Alcohol Use History: None Reported Past Drug Use History: None Reported - Past Family History Father Family Medical History: No Reported History Medications and Allergies Home Medications Medication Instructions Recorded Confirmed Type Ibuprofen [Motrin] 600 mg PO Q6HR PRN #60 tab 03/26/20 03/29/20 Rx Allergies Allergy/AdvReac Type Severity Reaction Status Date / Time No Known Allergies Allergy Verified 03/29/20 19:09 Physical Exam Vitals: Vital Signs Temp Pulse Resp BP Pulse Ox 03/31/20 08:00 98 F 67 16 140/88 96 03/31/20 04:00 97.8 F 63 18 134/86 03/31/20 00:00 98.4 F 59 L 12 138/82 03/30/20 20:00 97.2 F L 61 16 127/73 99 03/30/20 19:00 73 14 140/78 03/30/20 18:00 90 16 132/75 100 03/30/20 17:00 75 16 128/71 03/30/20 16:00 97.9 F 75 16 121/69 98 03/30/20 15:00 72 16 129/75 98 03/30/20 14:00 67 16 130/77 97 03/30/20 13:00 65 16 121/68 94 L 03/30/20 12:00 70 16 120/69 94 L Intake and Output 03/30/20 03/31/20 03/31/20 22:59 06:59 14:59 Intake Total 714.167 Output Total 800 700 300 Balance -85.833 -700 -300 Intake: IV 225 Lactated Ringers 1,000 ml 75 @ 25 mls/hr IV .Q24H [facility] Rx#:[id number] Magnesium Sulfate-Water 150 Pmx 20 gm In Water For Injection 1 500ml.bag @ 2 GM/HR 50 mls/hr IV .Q10H [facility] Rx#:[id number] Intake, IV Titration 489.167 Amount Magnesium Sulfate-Water 489.167 Pmx 20 gm In Water For Injection 1 500ml.bag @ 2 GM/HR 50 mls/hr IV .Q10H [facility] Rx#:[id number] Output: Urine 800 700 300 Uretheral (Nieto) 300 Results 03/30/20 06:16 03/30/20 06:16 Current Medications Generic Name Dose Route Start Last Admin Trade Name Freq PRN Reason Stop Dose Admin Acetaminophen 1,000 mg 03/29/20 22:20 03/30/20 18:14 Acetaminophen Tab 500 Mg Tab PO 1,000 mg Q6HR PRN Administration Fever and/ or Pain Ibuprofen 600 mg 03/29/20 20:40 Ibuprofen 600 Mg Tab PO Q6HR PRN Pain Intake and Output 03/30/20 03/31/20 03/31/20 22:59 06:59 14:59 Intake Total 714.167 Output Total 800 700 300 Balance -85.833 -700 -300 Intake: IV 225 Lactated Ringers 1,000 ml 75 @ 25 mls/hr IV .Q24H [facility] Rx#:[id number] Magnesium Sulfate-Water 150 Pmx 20 gm In Water For Injection 1 500ml.bag @ 2 GM/HR 50 mls/hr IV .Q10H [facility] Rx#:[id number] Intake, IV Titration 489.167 Amount Magnesium Sulfate-Water 489.167 Pmx 20 gm In Water For Injection 1 500ml.bag @ 2 GM/HR 50 mls/hr IV .Q10H [facility] Rx#:[id number] Output: Urine 800 700 300 Uretheral (Nieto) 300 03/30/20 06:16 03/30/20 06:16
[2020-03-31 13:28] VITALS: BP 138/75; PULSE 60; TEMP 97.4
== END 2020-03-31 13:45 | disposition home or self-care (01) ==
LOC: FBPOP 19:00 → 4FBP 20:59
PROVIDERS: ADMIT Obstetrics & Gynecology; ATTEND Obstetrics & Gynecology
DX: O14.95 Unspecified pre-eclampsia, complicating the puerperium (principal); O99.893 Other specified diseases and conditions complicating puerperium; R00.1 Bradycardia, unspecified; O99.355 Diseases of the nervous system complicating the puerperium; G43.909 Migraine, unspecified, not intractable, without status migrainosus; O99.43 Diseases of the circulatory system complicating the puerperium; I34.0 Nonrheumatic mitral (valve) insufficiency; Z98.51 Tubal ligation status; Z86.79 Personal history of other diseases of the circulatory system; Z87.59 Personal history of other complications of pregnancy, childbirth and the puerperium; Z98.890 Other specified postprocedural states; Z87.898 Personal history of other specified conditions
CPT/HCPCS: 93005; 96365; 96366 ×2; 82570; 80048; 84156; 82565; 83615 ×2; 84450 ×2; 84460 ×2; 84520; 84550; 85025 ×2; 81001; G0463; G0378 ×3; C8929; J3475 ×3; Q9950; 93306; 99215

== ENCOUNTER 2021-02-22 10:31 | Emergency (ER) | payer OTHER ==
[2021-02-22] MEDS ORDERED: diphenhydrAMINE 50 MG/ML 1 ML VIAL IVP STA (10:57)
[2021-02-22] MEDS ORDERED: SODIUM CHLORIDE 0.9% 1,000 ML IV STA (10:57)
[2021-02-22] MEDS ORDERED: METOCLOPRAMIDE 5 MG/ML 2 ML VIAL IVP STA (10:57)
[2021-02-22] MEDS ORDERED: KETOROLAC 15 MG/ML 1 ML VIAL IVP STA (10:57)
--- NOTE | 2021-02-22 11:01 | ED ---
General Adult HPI - General Chief complaint: Headache Stated complaint: Vomiting Time Seen by Provider: 02/22/21 10:35 Source: patient, EMS, RN notes reviewed Mode of arrival: EMS Limitations: no limitations - History of Present Illness Initial comments: 30-year-old female with a past medical history of migraines presents to the emergency room for a chief of migraine headache. Patient states this slowly started around 5 AM and then worsened in severity. States it feels like her typical migraine. States it is making her nauseous as it usually does. Patient is also concerned she could have coronavirus because she was sick a couple weeks ago. Patient denies , has tubal ligation.Patient has no other complaints at this time including shortness of breath, chest pain, abdominal pain, nausea or vomiting, or visual changes. - Related Data Home Medications Medication Instructions Recorded Confirmed No Known Home Medications 02/22/21 02/22/21 Allergies Allergy/AdvReac Type Severity Reaction Status Date / Time No Known Allergies Allergy Verified 02/22/21 11:14 Review of Systems ROS Statement: Those systems with pertinent positive or pertinent negative responses have been documented in the HPI. ROS Other: All systems not noted in ROS Statement are negative. Past Medical History Past Medical History: No Reported History Additional Past Medical History / Comment(s): migraines. CHF and preeclampsia after last delivery History of Any Multi-Drug Resistant Organisms: None Reported Past Surgical History: Section, Tubal Ligation Additional Past Surgical History / Comment(s): myringotomy as baby Past Anesthesia/Blood Transfusion Reactions: Motion Sickness Past Psychological History: No Psychological Hx Reported Smoking Status: Never smoker Past Alcohol Use History: None Reported Past Drug Use History: None Reported - Past Family History Father Family Medical History: No Reported History General Exam Limitations: no limitations General appearance: alert, in no apparent distress Head exam: Present: atraumatic Eye exam: Present: normal appearance, PERRL, EOMI ENT exam: Present: normal exam, mucous membranes moist Neck exam: Present: normal inspection, full ROM. Absent: tenderness Respiratory exam: Present: normal lung sounds bilaterally. Absent: respiratory distress, wheezes Cardiovascular Exam: Present: regular rate, normal rhythm, normal heart sounds GI/Abdominal exam: Present: soft, normal bowel sounds. Absent: distended, tenderness Neurological exam: Present: alert Course Vital Signs 02/22/21 10:40 Temperature 98 F Pulse Rate 103 H Respiratory 20 Rate Blood Pressure 114/78 O2 Sat by Pulse 100 Oximetry Medical Decision Making - Medical Decision Making Vitals are stable. Patient was given migraine cocktail and had significant resolution in symptoms. Currently resting comfortably. No red flag symptoms. Patient did test positive for Graf virus. However her symptoms started 2 weeks ago. Therefore she does not qualify for antibody infusion. At this time patient can be discharged home to follow up with primary care. Will return here for any worsening symptoms. - Lab Data Lab Results 02/22/21 Range/Units 11:15 Coronavirus (PCR) Detected A (Not Detectd) Disposition Clinical Impression: COVID-19, Migraine Disposition: HOME SELF-CARE Condition: Good Instructions (If sedation given, give patient instructions): Migraine Headache (ED) Additional Instructions: Please follow-up with your doctor in one to 2 days. Return to the emergency grey m for any worsening symptoms. Is patient prescribed a controlled substance at d/c from ED?: No Referrals: Jens Gallardo DO [Primary Care Provider] - 1-2 days Time of Disposition: 13:44
[2021-02-22 14:03] VITALS: BP 128/78; PULSE 78; RESP 16; TEMP 98.5
== END 2021-02-22 14:02 | disposition home or self-care (01) ==
LOC: EC 10:31
DX: U07.1 COVID-19 (principal); G43.909 Migraine, unspecified, not intractable, without status migrainosus; Z98.51 Tubal ligation status
CPT/HCPCS: 99284; 96374; 96375 ×2; 96361; 87635; J1200; J2765; J1885

== ENCOUNTER → 2021-03-08 | Outpatient (CLI) | payer OTHER ==
--- NOTE | 2021-03-08 14:12 | XR ---
EXAMINATION TYPE: XR cervical spine comp DATE OF EXAM: 03/08/2021 COMPARISON: None HISTORY: 30-year-old female M54.12 TECHNIQUE: 5 views FINDINGS: No predental space widening or prevertebral soft tissue swelling. Alignment is maintained. Disc inter spaces are preserved. No significant bony neuroforaminal narrowing on either side. Normal odontoid vi ew. IMPRESSION: No prevertebral soft tissue swelling or malalignment. No significant bony neuroforaminal narrowing on either side.
== END | disposition home or self-care (01) ==
LOC: RADXRMAIN 10:28
PROVIDERS: ATTEND Nurse Practitioner Family
DX: M54.12 Radiculopathy, cervical region (principal)
CPT/HCPCS: 72050

== ENCOUNTER 2022-04-26 10:11 | Emergency (ER) | payer OTHER ==
[2022-04-26 10:23] VITALS: RESP 18
[2022-04-26] MEDS ORDERED: SODIUM CHLORIDE 0.9% 1,000 ML IV STA (10:43)
[2022-04-26 11:07] LABS: African American GFR (CKD) >90 (>60 ml/min/1.73 sqM); Anion Gap 9 mmol/L; Blood Urea Nitrogen 10 mg/dL (7-17); Carbon Dioxide 24 mmol/L (22-30); Chloride 106 mmol/L (98-107); Glucose 100 mg/dL (74-99); Magnesium 1.8 mg/dL (1.6-2.3); Non-African American GFR(CKD) >90 (>60 ml/min/1.73 sqM); Potassium 4.7 mmol/L (3.5-5.1); Sodium 139 mmol/L (137-145)
--- NOTE | 2022-04-26 11:08 | ED ---
General Adult HPI - General Chief complaint: Neuro Symptoms/Deficit Stated complaint: poss stroke Time Seen by Provider: 04/26/22 10:27 Source: patient Mode of arrival: ambulatory Limitations: no limitations - History of Present Illness Initial comments: Dictation was produced using [employer] dictation software. please excuse any grammatical, word or spelling errors. Chief Complaint: 31-year-old female here in emergency department for concern of stroke History of Present Illness: 31-year-old female she's been having intermittent bouts of what she describes as strokelike symptoms. She states earlier today she had episode that last for 6 minutes. Since that there was some numbness in the left hand and the right lower face. She is scheduled to have a transesophageal echocardiogram on the to evaluate for septal defect causing CVAs versus TIAs. Patient still had a stroke before. Shortly after these episodes she gets a very strange headache that would also loss for a short time. She is asymptomatic at the bedside currently. The ROS documented in this emergency department record has been reviewed and confirmed by me. Those systems with pertinent positive or negative responses have been documented in the HPI. All other systems are other negative and/or noncontributory. PHYSICAL EXAM: General Impression: Alert and oriented x3, not in acute distress HEENT: Normocephalic atraumatic, extra-ocular movements intact, pupils equal and reactive to light bilaterally, mucous membranes moist. Cardiovascular: Heart regular rate and rhythm Chest: Able to complete full sentences, no retractions, no tachypnea Abdomen: abdomen soft, non-tender, non-distended, no organomegaly Musculoskeletal: Pulses present and equal in all extremities, no peripheral edema Motor: no focal deficits noted Neurological: CN II-XII grossly intact, no focal motor or sensory deficits noted, and at 0 Skin: Intact with no visualized rashes Psych: Normal affect and mood ED course:31-year-old female presents emergency department for his of strokelike symptoms. She is a symptomatically at the bedside. Physical examination is benign. Clinical presentation likely secondary to complex migraine given component of headache. Nursing notes and chart review was performed. Imaging studies interpreted by me shows no acute processes. Radiology report shows no acute processes. Patient reevaluated bedside at 1:05 PM found to be stable medical condition. Blood work is unremarkable. Patient these to be symptomatically. This patient highly doubt that patient suffering from cerebrovascular accident or transient ischemic attack. She reports it seems like her symptoms are triggered by stress related situations. Nonetheless she still encouraged to follow up with cardiology for a transesophageal echocardiogram done outpatient basis. My EKG interpretation: Ventricular rate 108, sinus tachycardia,. Interval 150, QRS 72, QTC 377. No NH prolongation, no QTC prolongation, no ST or T-wave changes noted. Overall, this EKG is unremarkable Critical Care: no Critical Care time: n/a - Related Data Home Medications Medication Instructions Recorded Confirmed Aspirin EC [Ecotrin Low Dose] 81 mg PO DAILY 04/26/22 04/26/22 Allergies Allergy/AdvReac Type Severity Reaction Status Date / Time No Known Allergies Allergy Verified 04/26/22 12:03 Review of Systems ROS Statement: Those systems with pertinent positive or pertinent negative responses have been documented in the HPI. ROS Other: All systems not noted in ROS Statement are negative. Past Medical History Past Medical History: No Reported History Additional Past Medical History / Comment(s): migraines. CHF and preeclampsia after last delivery History of Any Multi-Drug Resistant Organisms: None Reported Past Surgical History: Section, Tubal Ligation Additional Past Surgical History / Comment(s): myringotomy as baby Past Anesthesia/Blood Transfusion Reactions: Motion Sickness Past Psychological History: No Psychological Hx Reported Smoking Status: Never smoker Past Alcohol Use History: None Reported Past Drug Use History: None Reported - Past Family History Father Family Medical History: No Reported History General Exam Limitations: no limitations Course Vital Signs 04/26/22 04/26/22 04/26/22 10:17 11:53 12:34 Temperature 98.2 F Pulse Rate 114 H 98 93 Respiratory 18 18 18 Rate Blood Pressure 123/68 112/66 102/63 O2 Sat by Pulse 100 98 99 Oximetry Medical Decision Making - Lab Data Result diagrams: 04/26/22 10:45 04/26/22 10:45 Lab Results 04/26/22 04/26/22 Range/Units 10:45 10:45 WBC 7.0 (3.8-10.6) k/uL RBC 4.45 (3.80-5.40) m/uL Hgb 12.5 (11.4-16.0) gm/dL Hct 38.1 (34.0-46.0) % MCV 85.7 (80.0-100.0) fL MCH 28.0 (25.0-35.0) pg MCHC 32.7 (31.0-37.0) g/dL RDW 15.9 H (11.5-15.5) % Plt Count 239 (150-450) k/uL MPV 9.4 Neutrophils % 68 % Lymphocytes % 23 % Monocytes % 5 % Eosinophils % 2 % Basophils % 1 % Neutrophils # 4.7 (1.3-7.7) k/uL Lymphocytes # 1.6 (1.0-4.8) k/uL Monocytes # 0.4 (0-1.0) k/uL Eosinophils # 0.1 (0-0.7) k/uL Basophils # 0.1 (0-0.2) k/uL Hypochromasia Slight Sodium 139 (137-145) mmol/L Potassium 4.7 (3.5-5.1) mmol/L Chloride 106 (98-107) mmol/L Carbon Dioxide 24 (22-30) mmol/L Anion Gap 9 mmol/L BUN 10 (7-17) mg/dL Creatinine 0.63 (0.52-1.04) mg/dL Est GFR (CKD-EPI)AfAm >90 (>60 ml/min/1.73 sqM) Est GFR (CKD-EPI)NonAf >90 (>60 ml/min/1.73 sqM) Glucose 100 H (74-99) mg/dL Calcium 9.0 (8.4-10.2) mg/dL Magnesium 1.8 (1.6-2.3) mg/dL HCG, Quant <2.4 mIU/mL Disposition Clinical Impression: Facial numbness Disposition: HOME SELF-CARE Condition: Good Instructions (If sedation given, give patient instructions): Paresthesia (ED) Is patient prescribed a controlled substance at d/c from ED?: No Referrals: Jens Gallardo DO [Primary Care Provider] - 1-2 days Time of Disposition: 13:04
[2022-04-26 11:12] LABS: Basophils # (A) 0.1 k/uL (0-0.2); Basophils % (A) 1 %; Eosinophils # (A) 0.1 k/uL (0-0.7); Eosinophils % (A) 2 %; HCT 38.1 % (34.0-46.0); HGB 12.5 gm/dL (11.4-16.0); Hypochromasia Slight; Lymphocytes # (A) 1.6 k/uL (1.0-4.8); Lymphocytes % (A) 23 %; MCHC 32.7 g/dL (31.0-37.0); MCV 85.7 fL (80.0-100.0); Mean Platelet Volume 9.4; Monocytes # (A) 0.4 k/uL (0-1.0); Monocytes % (A) 5 %; Neutrophils # (A) 4.7 k/uL (1.3-7.7); Neutrophils % (A) 68 %; Platelet Count 239 k/uL (150-450); RBC 4.45 m/uL (3.80-5.40); RDW 15.9 % (11.5-15.5)
--- NOTE | 2022-04-26 11:17 | CT ---
EXAMINATION TYPE: CT brain wo con DATE OF EXAM: 04/26/2022 COMPARISON: None HISTORY: JAMES, Lt sided arm numbness, Rt sided facial tingling CT DLP: 1083.4 mGycm. Automated Exposure Control for Dose Reduction was Utilized. TECHNIQUE: CT scan of the head is performed without contrast. FINDINGS: There is no acute intracranial hemorrhage, mass effect, or midline shift identified. The ventricles and sulci are within normal limits in size. The globes are intact and the visualized sin uses are clear. IMPRESSION: No acute intracranial hemorrhage, mass effect, or midline shift is seen. If there is con cern for acute ischemia correlate with MRI as clinically warranted.
[2022-04-26 11:23] LABS: HCG,Quantitative Serum <2.4 mIU/mL
[2022-04-26] MEDS ORDERED: ONDANSETRON 4 MG/2 ML VIAL IVP STA (12:20)
[2022-04-26] MEDS ORDERED: KETOROLAC 15 MG/ML 1 ML VIAL IVP STA (12:20)
[2022-04-26 13:28] VITALS: BP 101/73; PULSE 98; TEMP 98.3
== END 2022-04-26 13:42 | disposition home or self-care (01) ==
LOC: EC 10:11
DX: R20.2 Paresthesia of skin (principal)
CPT/HCPCS: 36415; 93005; 80048; 83735; 85025; 84702; 70450; 99284; 96374; 96375; 96361; J2405; J1885

== ENCOUNTER 2022-05-05 06:56 | Day surgery (SDC) | payer OTHER ==
[2022-05-05] MEDS ORDERED: fentaNYL (PF) 50 MCG/ML 2 ML AMP ONE (07:22)
[2022-05-05] MEDS ORDERED: BENZOCAINE SPRAY 1 CAN TOPICAL ONE (07:28)
[2022-05-05] MEDS ORDERED: MIDAZOLAM 2 MG/2 ML VIAL IV ONE ×2 (07:39)
[2022-05-05] MEDS ORDERED: fentaNYL (PF) 50 MCG/ML 2 ML AMP IV ONE (07:43)
[2022-05-05] MEDS ORDERED: SODIUM CHLORIDE 0.9% 1,000 ML IV ONE (07:43)
[2022-05-05] MEDS ORDERED: SODIUM CHLORIDE 0.9% 500 ML 500 ML IV ONE (08:00)
[2022-05-05 08:05] VITALS: RESP 16; TEMP 98
--- NOTE | 2022-05-05 08:20 | P.PCN ---
Date of Procedure: 05/05/22 Operative Findings: TRANSESOPHAGEAL ECHOCARDIOGRAM WHITE LEAD GRINDER: AASHISH NAVARRO MD, RPVI INDICATION: Rule out cardiac source of embolization SEDATION: Conscious sedation COMPLICATION: None LEVEL OF SEDATION . PROCEDURE DESCRIPTION: After obtaining an informed consent, the patient was brought to transesophageal echocardiogram room. Pulse oximetry and heart monitors were attached to the patient. The patient throat was sprayed using lidocaine. The patient was turned into left lateral position. After that a bite guard was placed. After an appropriate conscious sedation was initiated, the transesophageal echocardiogram was advanced through a bite guard into the mid esophagus. A 2-D echocardiogram images, color Doppler images, continuous wave images, pulse-wave images, of various cardiac structure were performed. After that the transesophageal echocardiogram probe was advanced into the stomach and fixed to obtain transgastric view was. The probe was brought into the mid esophagus. Inter-atrial septum was interrogated using 2D images, color Doppler images, and then contrast study. After that transesophageal echocardiogram was withdrawn out and upon withdrawing the descending thoracic aorta all the way up to the arch was evaluated. FINDING: The left ventricular dimension and systolic function appeared to be within normal limits. Ejection fraction appears to be in the range of 60%. The right ventricle appeared to be of normal size and function. The aortic valve and mitral valve appeared to be structurally normal. Tricuspid valve and pulmonic valve appeared to be structurally normal. The interatrial septum appeared to be intact. The left atrial appendage appeared to be intact as well. CONCLUSION: 1. No evidence of cardiac source of embolization 2. Intact interatrial septum. Intact left atrial appendage. 3. Normal biventricular dimension and systolic function 4. Normal intracardiac valves 5. No evidence of pericardial effusion 6. Normal descending aorta
[2022-05-05 09:43] VITALS: BP 115/56; PULSE 78
== END 2022-05-05 09:05 | disposition home or self-care (01) ==
LOC: CATHCVL 06:56
PROVIDERS: ATTEND Internal Medicine Interventional Cardiology
DX: I34.0 Nonrheumatic mitral (valve) insufficiency (principal); I11.0 Hypertensive heart disease with heart failure; I50.9 Heart failure, unspecified; Z87.59 Personal history of other complications of pregnancy, childbirth and the puerperium; Z79.82 Long term (current) use of aspirin
CPT/HCPCS: 93312; 93320; 93325; 81025; J2250; J3010

== ENCOUNTER 2022-11-23 16:53 | Emergency (ER) | payer OTHER ==
[2022-11-23 18:55] VITALS: TEMP 98.3
--- NOTE | 2022-11-23 19:29 | ED ---
General Adult HPI - General Source: patient Mode of arrival: ambulatory Limitations: no limitations <Flakito White - Last Filed: 11/23/22 19:29> <Daniel Scott - Last Filed: 11/24/22 03:12> - General Chief complaint: Headache Stated complaint: Blurried Vision, Left Hand Numbness,Nausea - History of Present Illness Initial comments: 31 year old Female with a past medical history significant for migraines presents to ED with a chief complaint of headache. Patient states that at around 4 started to experience blurred vision, sharp headache, numbness in the left hand, and numbness of her mouth. Associated nausea. (Flakito White) 31-year-old female presenting with chief complaint of headache. Patient is having a sharp headache to the right druze. She states that today at about 3:30 she had sudden onset of blurred vision, left hand numbness and with numbness that lasted for about 10 minutes and has since completely resolved. After symptoms resolved headache began. Patient has had 4 episodes similar to this within the past year. She does not see a neurologist. She was seen at [facility] for the same complaint earlier today, and she was advised that she should have an MRI. She admits to nausea and vomiting. At this time she denies any current numbness, tingling, weakness, chest pain, difficulty breathing, vision or hearing changes, dizziness. (Daniel Scott) - Related Data Home Medications Medication Instructions Recorded Confirmed No Known Home Medications 11/23/22 11/23/22 Allergies Allergy/AdvReac Type Severity Reaction Status Date / Time No Known Allergies Allergy Verified 11/23/22 21:13 Review of Systems ROS Other: All systems not noted in ROS Statement are negative. <Flakito White - Last Filed: 11/23/22 19:29> ROS Other: All systems not noted in ROS Statement are negative. <Daniel Scott - Last Filed: 11/24/22 03:12> ROS Statement: Those systems with pertinent positive or pertinent negative responses have been documented in the HPI. Past Medical History Past Medical History: Thyroid Disorder Additional Past Medical History / Comment(s): migraines, CHF and preeclampsia w/1st , took BP med for short time after, pre-eclampsia again after delivery w/2nd , possible TIA's recently, vision is affected & sharp headache & numbness hand/ arm briefly-only lasts few minutes, recent CT scan was wnl, possible thyroid issue-something was elevated, needs more testing History of Any Multi-Drug Resistant Organisms: None Reported Past Surgical History: Section, Tubal Ligation Additional Past Surgical History / Comment(s): myringotomy as baby Past Anesthesia/Blood Transfusion Reactions: Motion Sickness Past Psychological History: No Psychological Hx Reported Smoking Status: Never smoker Past Alcohol Use History: None Reported Past Drug Use History: None Reported - Past Family History Father Family Medical History: No Reported History <Flakito White - Last Filed: 11/23/22 19:29> General Exam Limitations: no limitations General appearance: alert, in no apparent distress ENT exam: Present: mucous membranes moist Extremities exam: Present: other (Strength of bilateral upper extremities 5/5. Sensation intact) Neurological exam: Present: alert, oriented X3 <Flakito White - Last Filed: 11/23/22 19:29> Limitations: no limitations General appearance: alert, in no apparent distress Head exam: Present: atraumatic, normocephalic, normal inspection Eye exam: Present: normal appearance, PERRL, EOMI. Absent: scleral icterus, conjunctival injection, periorbital swelling Neck exam: Present: normal inspection, full ROM Respiratory exam: Present: normal lung sounds bilaterally. Absent: respiratory distress, wheezes, rales, rhonchi, stridor Cardiovascular Exam: Present: regular rate, normal rhythm, normal heart sounds. Absent: systolic murmur, diastolic murmur, rubs, gallop, clicks Extremities exam: Present: normal inspection, full ROM Neurological exam: Present: alert, oriented X3, CN II-XII intact Expanded Patient oriented to: Present: person, place, time Speech: Present: fluid speech Cranial nerves: EOM's Intact: Normal Motor strength exam: RUE: 5, LUE: 5, RLE: 5, LLE: 5 Eye Response: (4) open spontaneously Motor Response: (6) obeys commands Verbal Response: (5) oriented Kasia Total: 15 Psychiatric exam: Present: normal affect, normal mood Skin exam: Present: warm, dry, intact, normal color. Absent: rash <Daniel Scott - Last Filed: 11/24/22 03:12> Course Vital Signs 11/23/22 11/23/22 18:48 20:55 Temperature 98.3 F Pulse Rate 105 H 82 Respiratory 20 18 Rate Blood Pressure 116/82 114/77 O2 Sat by Pulse 99 98 Oximetry Medical Decision Making - Lab Data Result diagrams: 11/23/22 20:48 11/23/22 20:48 <Daniel Scott - Last Filed: 11/24/22 03:12> - Medical Decision Making Was pt. sent in by a medical professional or institution (, PA, CENTRAL STORES ATTENDANT, urgent care, hospital, or correction...) When possible be specific @ -No Did you speak to anyone other than the patient for history (EMS, parent, family, police, friend...)? What history was obtained from this source @ -No Did you review nursing and triage notes (agree or disagree)? Why? @ -I reviewed and agree with nursing and triage notes Were old charts reviewed (outside hosp., previous admission, EMS record, old EKG, old radiological studies, urgent care reports/EKG's, correction records)? Report findings @ -No old charts were reviewed Differential Diagnosis (chest pain, altered mental status, abdominal pain women, abdominal pain men, vaginal bleeding, weakness, fever, dyspnea, syncope, headache, dizziness, GI bleed, back pain, seizure, CVA, palpatations, mental health, musculoskeletal)? @ -MDM Differential Headache: Migraine, tension, cluster, carbon monoxide, central venous thrombosis, pension karma temporal arteritis, acute closure glaucoma, intercranial hemorrhage, mastoiditis, sinusitis, head injury this is not meant to be an all-inclusive list. EKG interpreted by me (3pts min.). @ -As above X-rays interpreted by me (1pt min.). @ -None done CT interpreted by me (1pt min.). @ -None done U/S interpreted by me (1pt. min.). @ -None done What testing was considered but not performed or refused? (CT, X-rays, U/S, labs)? Why? @ -None What meds were considered but not given or refused? Why? @ -None Did you discuss the management of the patient with other professionals (profbrett [place] i.e., Dr., PA, CENTRAL STORES ATTENDANT, lab, RT, psych nurse, case management social worker, rate and cost analyst, teacher, marketing officer, telephonic nurse case manager)? Give summary @ -No Was smoking cessation discussed for >3mins.? @ -No Was critical care preformed (if so, how long)? @ -No Were there social determinants of health that impacted care today? How? (Homelessness, low income, unemployed, alcoholism, drug addiction, transportation, low edu. Level, literacy, decrease access to med. care, prison, rehab)? @ -No Was there de-escalation of care discussed even if they declined (Discuss DNR or withdrawal of care, Hospice)? DNR status @ -No What co-morbidities impacted this encounter? (DM, HTN, Smoking, COPD, CAD, Cancer, CVA, ARF, Chemo, Hep., AIDS, mental health diagnosis, sleep apnea, morbid obesity)? @ -None Was patient admitted / discharged? Hospital course, mention meds given and route, prescriptions, significant lab abnormalities, going to OR and other pertinent info. @ -31-year-old female presenting with chief complaint of right-sided temporal headache that started this evening. She states that she had a brief moment of blurry vision and hand numbness when the headache started which has since completely resolved. She has had these episodes 4 times in the last year, has not yet followed up regarding these issues. On physical examination there are no focal neurological deficits. ESR and CRP are WNL. HCG is negative. Electrolytes are WNL. Patient reports improvement after Toradol and Reglan. She is instructed to follow-up with her PCP as she may need an MRI. I also prov ided her with a suggestion for a neurologist. Follow-up with PCP. Report back to ER with any new or worsening symptoms. Discussed return parameters and answered all questions. Patient conveyed verbal understanding and agreed to the plan. I discussed this case in detail with my attending Dr. Mullen Undiagnosed new problem with uncertain prognosis? @ -No Drug Therapy requiring intensive monitoring for toxicity (Heparin, Nitro, Insulin, Cardizem)? @ -No Were any procedures done? @ -No Diagnosis/symptom? @ -Complex migraine Acute, or Chronic, or Acute on Chronic? @ -Acute Uncomplicated (without systemic symptoms) or Complicated (systemic symptoms)? @ -Uncomplicated Side effects of treatment? @ -No Exacerbation, Progression, or Severe Exacerbation? @ -No Poses a threat to life or bodily function? How? (Chest pain, USA, PA, pneumonia, PE, COPD, DKA, ARF, appy, cholecystitis, CVA, Diverticulitis, Homicidal, Suicidal, threat to staff... and all critical care pts) @ -No (Daniel Scott) - Lab Data Lab Results 11/23/22 11/23/22 11/23/22 Range/Units 20:48 20:48 20:48 WBC 13.7 H (3.8-10.6) k/uL RBC 4.52 (3.80-5.40) m/uL Hgb 11.8 (11.4-16.0) gm/dL Hct 36.6 (34.0-46.0) % MCV 81.0 (80.0-100.0) fL MCH 26.1 (25.0-35.0) pg MCHC 32.3 (31.0-37.0) g/dL RDW 15.7 H (11.5-15.5) % Plt Count 281 (150-450) k/uL MPV 7.9 Neutrophils % 81 % Lymphocytes % 14 % Monocytes % 3 % Eosinophils % 0 % Basophils % 0 % Neutrophils # 11.1 H (1.3-7.7) k/uL Lymphocytes # 2.0 (1.0-4.8) k/uL Monocytes # 0.4 (0-1.0) k/uL Eosinophils # 0.1 (0-0.7) k/uL Basophils # 0.0 (0-0.2) k/uL ESR 20 (0-20) mm/hr Sodium (137-145) mmol/L Potassium (3.5-5.1) mmol/L Chloride (98-107) mmol/L Carbon Dioxide (22-30) mmol/L Anion Gap mmol/L BUN (7-17) mg/dL Creatinine (0.52-1.04) mg/dL Est GFR (CKD-EPI)AfAm (>60 ml/min/1.73 sqM) Est GFR (CKD-EPI)NonAf (>60 ml/min/1.73 sqM) Glucose (74-99) mg/dL Calcium (8.4-10.2) mg/dL Total Bilirubin (0.2-1.3) mg/dL AST (14-36) U/L ALT (4-34) U/L Alkaline Phosphatase (38-126) U/L C-Reactive Protein (<1.0) mg/dL Total Protein (6.3-8.2) g/dL Albumin (3.5-5.0) g/dL Urine Color Yellow Urine Appearance Cloudy H (Clear) Urine pH 6.0 (5.0-8.0) Ur Specific [place] 1.028 (1.001-1.035) Urine Protein Trace H (Negative) Urine Glucose (UA) Negative (Negative) Urine Ketones Trace H (Negative) Urine Blood Negative (Negative) Urine Nitrite Negative (Negative) Urine Bilirubin Negative (Negative) Urine Urobilinogen <2.0 (<2.0) mg/dL Ur Leukocyte Esterase Negative (Negative) Urine RBC 1 (0-5) /hpf Urine WBC <1 (0-5) /hpf Ur Squamous Epith Cells 5 H (0-4) /hpf Urine Bacteria Rare H (None) /hpf Urine Mucus Many H (None) /hpf Urine HCG, Qual Not Detected (Not Detectd) 11/23/22 Range/Units 20:48 WBC (3.8-10.6) k/uL RBC (3.80-5.40) m/uL Hgb (11.4-16.0) gm/dL Hct (34.0-46.0) % MCV (80.0-100.0) fL MCH (25.0-35.0) pg MCHC (31.0-37.0) g/dL RDW (11.5-15.5) % Plt Count (150-450) k/uL MPV Neutrophils % % Lymphocytes % % Monocytes % % Eosinophils % % Basophils % % Neutrophils # (1.3-7.7) k/uL Lymphocytes # (1.0-4.8) k/uL Monocytes # (0-1.0) k/uL Eosinophils # (0-0.7) k/uL Basophils # (0-0.2) k/uL ESR (0-20) mm/hr Sodium 138 (137-145) mmol/L Potassium 3.7 (3.5-5.1) mmol/L Chloride 102 (98-107) mmol/L Carbon Dioxide 25 (22-30) mmol/L Anion Gap 11 mmol/L BUN 13 (7-17) mg/dL Creatinine 0.66 (0.52-1.04) mg/dL Est GFR (CKD-EPI)AfAm >90 (>60 ml/min/1.73 sqM) Est GFR (CKD-EPI)NonAf >90 (>60 ml/min/1.73 sqM) Glucose 98 (74-99) mg/dL Calcium 9.5 (8.4-10.2) mg/dL Total Bilirubin 0.3 (0.2-1.3) mg/dL AST 25 (14-36) U/L ALT 17 (4-34) U/L Alkaline Phosphatase 123 (38-126) U/L C-Reactive Protein <0.5 (<1.0) mg/dL Total Protein 8.3 H (6.3-8.2) g/dL Albumin 4.8 (3.5-5.0) g/dL Urine Color Urine Appearance (Clear) Urine pH (5.0-8.0) Ur Specific [place] (1.001-1.035) Urine Protein (Negative) Urine Glucose (UA) (Negative) Urine Ketones (Negative) Urine Blood (Negative) Urine Nitrite (Negative) Urine Bilirubin (Negative) Urine Urobilinogen (<2.0) mg/dL Ur Leukocyte Esterase (Negative) Urine RBC (0-5) /hpf Urine WBC (0-5) /hpf Ur Squamous Epith Cells (0-4) /hpf Urine Bacteria (None) /hpf Urine Mucus (None) /hpf Urine HCG, Qual (Not Detectd) Disposition <Flakito White - Last Filed: 11/23/22 19:29> Is patient prescribed a controlled substance at d/c from ED?: No Time of Disposition: 21:48 <Daniel Scott - Last Filed: 11/24/22 03:12> Clinical Impression: Migraine Disposition: HOME SELF-CARE Condition: Fair Instructions (If sedation given, give patient instructions): Migraine Headache (ED), Ocular Migraine (ED) Additional Instructions: Follow-up with PCP. Likely need outpatient MRI. Report back to ER with any new or worsening symptoms. Referrals: Jens Gallardo DO [Primary Care Provider] - 1-2 days Daniel Cruz MD [Medical Doctor] - 1-2 days
[2022-11-23] MEDS ORDERED: KETOROLAC 15 MG/ML 1 ML VIAL IVP STA (19:59)
[2022-11-23] MEDS ORDERED: METOCLOPRAMIDE 5 MG/ML 2 ML VIAL IVP STA (20:00)
[2022-11-23 21:00] LABS: Basophils % (A) 0 %; Eosinophils # (A) 0.1 k/uL (0-0.7); Eosinophils % (A) 0 %; HCT 36.6 % (34.0-46.0); HGB 11.8 gm/dL (11.4-16.0); Lymphocytes % (A) 14 %; MCH 26.1 pg (25.0-35.0); MCHC 32.3 g/dL (31.0-37.0); Mean Platelet Volume 7.9; Monocytes # (A) 0.4 k/uL (0-1.0); Monocytes % (A) 3 %; Neutrophils # (A) 11.1 k/uL (1.3-7.7); Neutrophils % (A) 81 %; Platelet Count 281 k/uL (150-450); RBC 4.52 m/uL (3.80-5.40); RDW 15.7 % (11.5-15.5); WBC 13.7 k/uL (3.8-10.6)
[2022-11-23 21:06] LABS: Appearance,Urine Cloudy (Clear); Bacteria,Urine Rare /hpf; Bilirubin,Urine Negative (Negative); Blood,Urine Negative (Negative); Color,Urine Yellow; Glucose,Urine (UA) Negative (Negative); Ketones,Urine Trace (Negative); Leukocyte Esterase,Urine Negative (Negative); Mucus,Urine Many /hpf; Nitrite,Urine Negative (Negative); Protein,Urine Trace (Negative); RBC,Urine 1 /hpf (0-5); Specific Gravity,Urine 1.028 (1.001-1.035); Squamous Epithelial Cell,Urine 5 /hpf (0-4); Urobilinogen,Urine <2.0 mg/dL (<2.0); WBC,Urine <1 /hpf (0-5)
[2022-11-23 21:14] LABS: ALT 17 U/L (4-34); AST 25 U/L (14-36); African American GFR (CKD) >90 (>60 ml/min/1.73 sqM); Albumin 4.8 g/dL (3.5-5.0); Alkaline Phosphatase 123 U/L (38-126); Anion Gap 11 mmol/L; Blood Urea Nitrogen 13 mg/dL (7-17); C Reactive Protein <0.5 mg/dL (<1.0); Calcium 9.5 mg/dL (8.4-10.2); Carbon Dioxide 25 mmol/L (22-30); Chloride 102 mmol/L (98-107); Glucose 98 mg/dL (74-99); Non-African American GFR(CKD) >90 (>60 ml/min/1.73 sqM); Potassium 3.7 mmol/L (3.5-5.1); Sodium 138 mmol/L (137-145); Total Bilirubin 0.3 mg/dL (0.2-1.3); Total Protein 8.3 g/dL (6.3-8.2)
[2022-11-23 21:36] VITALS: BP 114/77; PULSE 82; RESP 18
[2022-11-23 21:42] LABS: Erythrocyte Sedimentation Rate 20 mm/hr (0-20)
== END 2022-11-23 22:01 | disposition home or self-care (01) ==
LOC: EC 16:53
DX: G43.909 Migraine, unspecified, not intractable, without status migrainosus (principal)
CPT/HCPCS: 36415; 80053; 85652; 85025; 86140; 81001; 81025; 99283; 96374; 96375; J2765; J1885

== ENCOUNTER → 2023-01-08 | Outpatient (CLI) | payer OTHER ==
--- NOTE | 2023-01-09 10:34 | MR ---
EXAMINATION TYPE: MR brain wo con DATE OF EXAM: 01/08/2023 7:45 PM COMPARISON: 04/26/2022. CLINICAL INDICATION:Female, 32 years old with history of G43.109; PHH, Migraines with aura, numbness arms and lips TECHNIQUE: Multi planar, multi sequence imaging was performed through the brain including: T1, T2, In version recovery, Diffusion weighted imaging, and gradient echo imaging. No gadolinium was given. FINDINGS: The domingo-white junctions, ventricular system, and cisterns appear unremarkable. Midline structures sh ow no abnormality. Diffusion-weighted imaging shows no evidence of restricted diffusion. The suscepti bility weighted images do not reveal any evidence for micro-hemorrhage. The bone marrow signal is within normal limits. Paranasal sinuses and mastoid air cells: No significant paranasal sinus disease. Visualized orbits: Orbital contents are intact. IMPRESSION: 1. No evidence of intracranial mass or acute/subacute infarct.
== END | disposition home or self-care (01) ==
LOC: RADMRIMAIN 18:33
PROVIDERS: ATTEND Family Medicine
DX: G43.109 Migraine with aura, not intractable, without status migrainosus (principal); R20.0 Anesthesia of skin
CPT/HCPCS: 70551

== ENCOUNTER → 2023-02-05 | Outpatient (CLI) | payer OTHER ==
--- NOTE | 2023-02-06 12:46 | US ---
EXAMINATION TYPE: US thyroid st tissue head/neck DATE OF EXAM: 02/05/2023 COMPARISON: NONE CLINICAL INDICATION: Female, 32 years old with history of R22.9 LOCALIZED SWELLING, MASS AND LUMP, UN SPECIFI; Lump felt on 01/09/2023 and patient could feel it for 5 days. GLAND SIZE: Right Lobe: 7.9 x 3.8 x 2.2 cm Overall Parenchyma: Very heterogeneous Left Lobe: 7.7 x 3.0 x 1.9 cm Overall Parenchyma: Very heterogeneous Isthmus Thickness: 0.52 cm Gland appears enlarged. NODULES RIGHT: # of nodules measured on right: 2 1. 1.3 X 1.2 x 0.7 cm, lower lateral, mixed cystic and solid, hypoechoic nodule, which is wider ramirez n tall, with smooth margins, with echogenic foci. Prior size: no prior 2. 1.3 X 0.9 x 0.7 cm, mid mid, mixed cystic and solid, hypoechoic nodule, which is wider than tall , with smooth margins, without echogenic foci. TR 3 Prior size: no prior LEFT: # of nodules measured on left: 3 1. 0.9 X 0.9 x 0.5 cm, upper mid, cystic or almost completely cystic, anechoic nodule, which is wid er than tall, with smooth margins, without echogenic foci. Prior size: no prior 2. 0.8 X 0.8 x 0.4 cm, mid lateral, mixed cystic and solid, hypoechoic nodule, which is wider than tall, with smooth margins, without echogenic foci. Prior size: no prior 3. 0.9 X 0.8 x 0.7 cm, lower medial, mixed cystic and solid, hypoechoic nodule, which is wider than tall, with smooth margins, with echogenic foci. Prior size: no prior ISTHMUS: # of nodules measured in the isthmus: 0 Bilateral neck scanned, no evidence of lymphadenopathy. IMPRESSION: Mildly suspicious nodule right lobe thyroid. Consider follow-up in one year. 2017 ACR TI-RADS LEVEL: *Highest TI-RADS level nodule reported
== END | disposition home or self-care (01) ==
LOC: RADUSWWP 16:08
PROVIDERS: ATTEND Family Medicine
DX: E04.1 Nontoxic single thyroid nodule (principal)
CPT/HCPCS: 76536

== ENCOUNTER → 2023-04-18 | Outpatient (CLI) | payer OTHER ==
--- NOTE | 2023-04-19 14:40 | NM ---
EXAMINATION TYPE: NM thyroid image w uptake DATE OF EXAM: 04/19/2023 COMPARISON: NONE CLINICAL INDICATION: Female, 32 years old with history of R94.8 ABNORMAL RESULTS OF FUNCTION STUDIES OF ORGA; TECHNIQUE: Thyroid iodine uptake is calculated and images performed after the oral administration of 308 uCi 1-123 Capsule. FINDINGS: There is normal distribution of activity throughout the gland. The 4 hour iodine uptake is calculated at 16.1% (normal range 8-14%). The 24-hour iodine uptake is calculated at 36.4% (normal r kirsten 15-35%). Imaging is distribution radiotracer throughout the thyroid lobes. No hot or cold nodules seen. IMPRESSION: Mildly increased 4 and 24-hour uptake noted. Correlate with thyroid function testing.
== END | disposition home or self-care (01) ==
LOC: RADNMMAIN 09:18
PROVIDERS: ATTEND Family Medicine
DX: R94.8 Abnormal results of function studies of other organs and systems (principal)
CPT/HCPCS: 78014; A9516

== ENCOUNTER → 2024-07-17 | Outpatient (CLI) | payer OTHER ==
--- NOTE | 2024-07-17 19:09 | US ---
EXAMINATION TYPE: US thyroid st tissue head/neck DATE OF EXAM: 07/17/2024 COMPARISON: US(02/05/2023) CLINICAL INDICATION: Female, 33 years old with history of E04.1 THYROID NODULE; TECHNIQUE: Grayscale and color Doppler imaging of the thyroid gland. FINDINGS: GLAND SIZE: Right Lobe: 6.8x2.1x3.1cm Overall Parenchyma: heterogeneous Left Lobe: 6.0x1.6x3.0cm Overall Parenchyma: heterogeneous Isthmus Thickness: 0.3m NODULES RIGHT: # of nodules measured on right: 2 1. 0.6 0.5x 0.6m, mid mid, mixed cystic and solid, hypoechoic nodule, which is wider than tall, with lobulated or irregular margins, without echogenic foci. Multiple nodules visualized Largest 2 measured, unable to follow measurements from prior US 2. 0.9 0.6x 0.8m, mid mid, cystic or almost completely cystic, anechoic nodule, which is wider than tall, with smooth margins, without echogenic foci. Multiple nodules visualized Largest 2 visualized, unable to follow measurements from prior US LEFT: # of nodules measured on left: 3 1. 1.6 x 0.8 x 1.1 cm mid mid, mixed cystic and solid, hypoechoic nodule, which is wider than tall, with smooth margins, without echogenic foci. TR 3 Multiple nodules visualized Largest 3 measured, unable to follow measurements from prior US 2. 1.0 x 0.3 x 0.7 cm, mid mid, cystic or almost completely cystic, anechoic nodule, which is wider than tall, with smooth margins, without echogenic foci. 3. 1.1 x 0.8 x 1.1 cm lower mid, mixed cystic and solid, hypoechoic nodule, which is wider than tall , with smooth margins, without echogenic foci. TR 3 difficult to follow from prior US, Largest 3 nodules measured on today's study ISTHMUS: # of nodules measured in the isthmus: 0 Bilateral neck scanned, no evidence of lymphadenopathy. IMPRESSION: Mildly suspicious nodules. Follow-up exam in one year recommended 2017 ACR TI-RADS LEVEL: TI-RADS 3 - Mildly Suspicious: Follow if > 1.5 cm, FNA if > 2.5 cm *Highest TI-RADS level nodule reported [email or web address], , 07/17/2024 7:07 PM
== END | disposition home or self-care (01) ==
LOC: RADUSWWP 15:58
PROVIDERS: ATTEND Family Medicine
DX: E04.2 Nontoxic multinodular goiter (principal)
CPT/HCPCS: 76536